=== PATIENT | female | born 1945 | race Caucasian/White ===

== ENCOUNTER 2017-02-23 12:17 | Inpatient (IN) | payer MEDICARE, OTHER ==
[~2017-02-23] VITALS: Ht 162.6 cm; Wt 98.9 kg
[2017-02-23 12:20] VITALS: BP 134/80; PULSE 85; O2SAT 94
--- NOTE | 2017-02-23 13:11 | ED.REPORT ---
HPI-Altered Mental Status Date of Service Feb 23, 2017 ED Provider: Stephanie Franco MD 71 year old female presents to the ER due to seizures and confusion. She was seen four days ago at [facility] and diagnosed wtih UTI. Nurse at the patient's assisted living facility reports back to back absence seizures, and increased confusion. Patient has been unable to feed and dress herself, and has an unsteady gait. She has a neurology appointment scheduled for tomorrow. Nursing Notes Stated Complaint: SEIZURES/CONFUSION Chief Complaint: Seizure Nursing Notes Reviewed: Yes Allergies: Coded Allergies: acetaminophen (Verified Allergy, Unknown, 02/23/17) codeine (Verified Allergy, Unknown, 02/23/17) oxycodone (Verified Allergy, Unknown, 02/23/17) General Time Seen by MD: 13:03 Chief Complaint Confused, Seizure activity Arrived By: Walk-in Sudden in Onset?: No Past Medical History Past Medical History Seizures Cardiomyopathy Reports: Diabetes mellitus Reports: Urinary tract infection Past Surgical History Defibrillator placement Smoking History Unknown if Ever Smoker Review of Systems Review of Systems Note: +Unsteady gait Neurologic: Reports: Seizure Psychiatric: Reports: Confusion Complete sys rev & neg: except as marked. Physical Exam Initial Vital Signs Vital Signs (First) Date Time Temp Pulse Resp B/P Pulse Ox O2 Delivery O2 Flow Rate FiO2 02/23/17 12:20 36.8 85 134/80 94 Interpretation & Diagnostics Lab Results Interpretation Result Diagram: 02/23/17 1335 02/23/17 1335 Test 02/23/17 12:30 02/23/17 13:35 Urine Color Straw (YELLOW) Urine Appearance Hazy (CLEAR,HAZY) Urine pH 7.0 (5.0-8.0) Urine Specific [place] 1.010 (1.003-1.035) Urine Protein Negativemg/dL (NEG,TRACE) Urine Glucose (UA) Negativemg/dL (NEGATIVE) Urine Ketones Negativemg/dL (NEGATIVE) Urine Occult Blood Negative (NEGATIVE) Urine Nitrite Negative (NEGATIVE) Urine Bilirubin Negative (NEGATIVE) Urine Urobilinogen Normalmg/dL (NORMAL) Urine Leukocyte Esterase Trace (NEGATIVE) Urine RBC 0-2/hpf (0-2) Urine WBC 0-5/hpf (0-5) Urine Epithelial Cells Occasional/hpf (NONE-MOD) Urine Crystals None seen (NONE SEEN) Urine Bacteria Moderate/hpf (NONE-FEW) Urine Hyaline Casts None/lpf (NONE) Urine Granular Casts None seen (NONE SEEN) Urine Waxy Casts None seen (NONE SEEN) Urine Red Blood Cell Casts None seen (NONE SEEN) Urine White Blood Cell Casts None seen (NONE SEEN) Urine Mucus None seen (None Seen) Urine Trichomonas None seen (NONE SEEN) Urine Yeast None (NONE SEEN) Urinalysis Comment None Urine Culture Reflexed Indicated White Blood Count 8.3th/mm3 (3.8-10.1) Red Blood Count 4.77mil/mm3 (3.90-5.20) Hemoglobin 13.3g/dL (12.0-15.6) Hematocrit 40.3% (35.0-46.0) Mean Corpuscular Volume 84.5fL (81-100) Mean Corpuscular Hemoglobin 27.9pg (27.0-35.0) Mean Corpuscular Hemoglobin Concent 33.0% (32.0-37.0) Red Cell Distribution Width 14.3% (12.3-15.4) Platelet Count vaughn/L (150-400) Neutrophils (%) (Auto) 38.7% (40-74) Lymphocytes (%) (Auto) 46.9% (14-46) Monocytes (%) (Auto) 11.6% (4-12) Eosinophils (%) (Auto) 2.0% (0-5) Basophils (%) (Auto) 0.4% (0-3) Prothrombin Time 10.4sec (8.1-12.5) Prothromb Time International Ratio 0.97ratio Activated Partial Thromboplast Time 33.0sec (22.8-33.0) Sodium Level 136mEq/L (134-144) Potassium Level 4.4mEq/L (3.5-5.2) Chloride Level 95mEq/L (97-108) Carbon Dioxide Level 24mmol/L (18-29) Blood Urea Nitrogen 6mg/dL (8-27) Creatinine 0.55mg/dL (0.57-1.00) Estimat Glomerular Filtration Rate 157mL/min (>59) Glucose Level 121mg/dL (60-99) Lactic Acid Level 1.9mmol/L (0.4-2.0) Calcium Level 9.9mg/dL (8.5-10.1) Total Bilirubin 0.5mg/dL (0.0-1.2) Aspartate Amino Transf (AST/SGOT) 20U/L (0-50) Alanine Aminotransferase (ALT/SGPT) 16U/L (0-32) Alkaline Phosphatase 45U/L (25-165) Troponin T < 0.010ug/L (0.0-0.011) Total Protein 7.6g/dL (6.4-8.4) Albumin 4.4g/dL (3.4-5.0) Procalcitonin 0.04ng/mL (0.00-0.08) ECG Interpretation ECG Interpretation: Sinus rhythm, rate 82 LBBB No acute changes Time: 13:28 Interpreted by: ED physician CT Head Interpretation IMPRESSION: 1. No acute intracranial hemorrhage. 2. Probable chronic small vessel ischemic changes with parenchymal volume loss. The need for better evaluation utilizing MRI may be determined clinically. Dictated by: Derik Menezes M.D. on 02/23/2017 at 12:54 Approved by: Derik Menezes M.D. on 02/23/2017 at 12:57 Study: Head CT no contrast Interpretation / Wet Read by: Interpret - Radiologist Patient Discharge & Departure Referrals: NOPCP (PCP) Stephanie Franco MD Feb 23, 2017 13:11 SIMON KENT Feb 23, 2017 13:16
[2017-02-23 13:29] LABS: APPEARANCE,URINE HAZY (CLEAR,HAZY); COLOR,URINE STRAW (YELLOW); OCCULT BLOOD,URINE NEGATIVE (NEGATIVE); UROBILINOGEN,URINE NORMAL (NORMAL)
[2017-02-23 13:56] LABS: BASOPHILS % (AUTO) 0.4 % (0-3); MONOCYTES % (AUTO) 11.6 % (4-12); Mean Corpuscular Hemoglobin 27.9 pg (27.0-35.0); Mean Corpuscular Volume 84.5 fL (81-100); NEUTROPHILS % (AUTO) 38.7 % (40-74)
--- NOTE | 2017-02-23 13:58 | DRSVH ---
PROCEDURE: CT BRAIN WITHOUT CONTRAST ([id number]) INDICATIONS: Stroke TECHNIQUE: Noncontrast 4.5 mm thick angled axial sections acquired from the foramen magnum to the vertex, with c oronal reformats. COMPARISON: Outside Film, CT, CT BRAIN WO CON, 02/20/2017, 12:41. FINDINGS: Image quality: Diagnostic. Brain: There is no acute intra-axial or extra-axial hemorrhage. No extra-axial fluid collection is i dentified. There is no midline shift or mass effect. The orbits are grossly unremarkable. No large areas of diffusely decreased attenuation are evident within the brain to suggest diffuse cer ebral edema. Areas of periventricular low attenuation are noted. The ventricles and cortical sulci are moderately prominent Bones: Calvarium and visualized facial bones are grossly intact. The imaged paranasal sinuses and m astoid air cells are clear. IMPRESSION: 1. No acute intracranial hemorrhage. 2. Probable chronic small vessel ischemic changes with parenchymal volume loss. The need for better evaluation utilizing MRI may be determined clinically. Dictated by: Derik Menezes M.D. on 02/23/2017 at 12:54 Approved by: Derik Menezes M.D. on 02/23/2017 at 12:57
[2017-02-23 14:04] LABS: INR 0.97 ratio
[2017-02-23 14:34] LABS: TROPONIN T < 0.010 ug/L (0.0-0.011)
[2017-02-23] MEDS ORDERED: Ondansetron 2 mg/mL 2 mL Inj IVPUSH PRN (16:05)
[2017-02-23] MEDS ORDERED: Alum-Mag Hydrox-Simeth 30 mL Suspension PO PRN (16:05)
--- NOTE | 2017-02-23 16:05 | ED.REPORT ---
HPI-General Illness Date of Service Feb 23, 2017 ED Provider: Samuel Nieto MD The patient is a 71 year old female with history of seizure disorder (started in 2014, on Keppra and valproic acid), cardiomyopathy, diabetes mellitus on Metformin (recently started), who presents to the emergency department with family. The patient lives in assisted living. Typically she is alert and oriented, able to dress herself, walk, feed herself, and complete basic daily activities. Over the last week she has shown increased confusion, increased seizure activity, and unsteady gait. The nurse at the assisted living facility reported that the patient has been having back to back absence seizures. Her daughter feels that the frequency of seizures are higher compared to previous seizure episodes. She is now unable to dress or feed herself. Her daughter states she is also having a hard time articulating and is unable to answer questions or follow directions. Her daughter feels that the patient has episodes of confusion and then will return to baseline, then have another episode of confusion. She was seen on Thursday and Thursday at [facility]. On Thursday she was diagnosed with a UTI and started on Keflex. Her daughter does not believe she has missed any of her seizure medication doses. There has been no recent changes to her medications. Today when they got her from home she seemed more shaky and weak compared to normal. She has not fallen or hit her head recently. She has not had a fever, cough or vomiting. Neurologist: Dr. Alejandro Nursing Notes Stated Complaint: SEIZURES/CONFUSION Chief Complaint: Seizure Nursing Notes Reviewed: Yes Allergies: Coded Allergies: acetaminophen (Verified Allergy, Unknown, 02/23/17) codeine (Verified Allergy, Unknown, 02/23/17) oxycodone (Verified Allergy, Unknown, 02/23/17) Scheduled Carvedilol (Carvedilol) 25 Mg Tablet 25 MG PO BID Cephalexin (Cephalexin) 500 Mg Capsule 500 MG PO TID Digoxin (Digoxin) 125 Mcg Tablet 125 MCG PO DAILY Eplerenone (Eplerenone) 25 Mg Tablet 25 MG PO QAM Fenofibrate (Lofibra) 54 Mg Tablet 54 MG PO DAILY Furosemide (Furosemide) 20 Mg Tab 20 MG PO BIDWM Levetiracetam (Levetiracetam) 500 Mg Tablet 500 MG PO QAM Levetiracetam (Levetiracetam) 500 Mg Tablet 1,000 MG PO HS Losartan Potassium (Losartan Potassium) 50 Mg Tablet 50 MG PO BID Metformin (Metformin) 500 Mg Tablet 500 MG PO BIDWM Olanzapine (Olanzapine) 2.5 Mg Tablet 2.5 MG PO HS Omeprazole (Omeprazole) 20 Mg Capsule.dr 20 MG PO BIDAC Valproic Acid (Valproic Acid) 250 Mg Capsule 500 MG PO BID Swallowed whole without chewing to avoid local irritation of the mouth and throat. General Time Seen by MD: 15:16 Chief Complaint Altered mental status Hx Obtained From: Patient, Daughter Arrived By: Wheelchair Sudden in Onset?: Yes Onset Occurred: 1 week ago Symptom Duration: Since onset Severity: Current: No pain currently Severity: Maximum: No pain Recent Healthcare: No recent hospitalization, Recent doctor visit Similar Sx Previous: No Past Medical History Past Medical History Seizures Cardiomyopathy Reports: Diabetes mellitus Reports: Urinary tract infection Past Surgical History Defibrillator placement Family History Noncontributory Smoking History Unknown if Ever Smoker Social History Other Social History: Good social support, Lives in [facility] Ambulatory Status Independent Review of Systems Full Review of Systems Constitutional: Reports: Weakness - generalized, Denies: Fever Respiratory: Denies: Non-productive cough GI: Denies: Vomiting Neurologic: Reports: Confusion, Problem walking, Seizure, Shaking Psychiatric: Reports: Change mental status Complete sys rev & neg: except as marked. Physical Exam Vital Signs Vital Signs Date Time Temp Pulse Resp B/P Pulse Ox O2 Delivery O2 Flow Rate FiO2 02/23/17 12:20 36.8 85 134/80 94 Initial VS: Reviewed Neck: Supple, Non-tender, Full range of motion Respiratory: Breath sounds normal, Clear to auscultation, No respiratory distress Cardiovascular: Regular rate & rhythm, Heart sounds normal, Intact distal pulses Abdomen / GI: Soft, Non-tender, No guarding, No rebound, No distention Extremities: No tenderness Skin: Warm, Dry, No cyanosis General/Constitutional: Awake, Alert, Cooperative Head / Eyes: Atraumatic, Normocephalic, PERRL, EOMI No signs of trauma ENT: Atraumatic, Airway patent No signs of trauma Lower Extremity / Pelvis / MS: No deformity Bilateral non-pitting edema bilaterally that extends up to the knees. There is a bandage to the left lateral lower extremity without redness, erythema or warmth. Neurologic: Speech NL She is not oriented to place or time but she is able to speak fluently without slurred speech. No facial droop. Strength is 5/5 to upper and lower extremities. She has a little difficulty following directions on the neuro exam. No pronator drift. Sensation is intact. No dysmetria with finger to nose testing. Interpretation & Diagnostics Lab Results Interpretation Result Diagram: 02/23/17 1335 02/23/17 1335 Test 02/23/17 12:30 02/23/17 13:35 02/23/17 16:17 Urine Color Straw (YELLOW) Urine Appearance Hazy (CLEAR,HAZY) Urine pH 7.0 (5.0-8.0) Urine Specific [place] 1.010 (1.003-1.035) Urine Protein Negativemg/dL (NEG,TRACE) Urine Glucose (UA) Negativemg/dL (NEGATIVE) Urine Ketones Negativemg/dL (NEGATIVE) Urine Occult Blood Negative (NEGATIVE) Urine Nitrite Negative (NEGATIVE) Urine Bilirubin Negative (NEGATIVE) Urine Urobilinogen Normalmg/dL (NORMAL) Urine Leukocyte Esterase Trace (NEGATIVE) Urine RBC 0-2/hpf (0-2) Urine WBC 0-5/hpf (0-5) Urine Epithelial Cells Occasional/hpf (NONE-MOD) Urine Crystals None seen (NONE SEEN) Urine Bacteria Moderate/hpf (NONE-FEW) Urine Hyaline Casts None/lpf (NONE) Urine Granular Casts None seen (NONE SEEN) Urine Waxy Casts None seen (NONE SEEN) Urine Red Blood Cell Casts None seen (NONE SEEN) Urine White Blood Cell Casts None seen (NONE SEEN) Urine Mucus None seen (None Seen) Urine Trichomonas None seen (NONE SEEN) Urine Yeast None (NONE SEEN) Urinalysis Comment None Urine Culture Reflexed Indicated White Blood Count 8.3th/mm3 (3.8-10.1) Red Blood Count 4.77mil/mm3 (3.90-5.20) Hemoglobin 13.3g/dL (12.0-15.6) Hematocrit 40.3% (35.0-46.0) Mean Corpuscular Volume 84.5fL (81-100) Mean Corpuscular Hemoglobin 27.9pg (27.0-35.0) Mean Corpuscular Hemoglobin Concent 33.0% (32.0-37.0) Red Cell Distribution Width 14.3% (12.3-15.4) Platelet Count vaughn/L (150-400) Neutrophils (%) (Auto) 38.7% (40-74) Lymphocytes (%) (Auto) 46.9% (14-46) Monocytes (%) (Auto) 11.6% (4-12) Eosinophils (%) (Auto) 2.0% (0-5) Basophils (%) (Auto) 0.4% (0-3) Prothrombin Time 10.4sec (8.1-12.5) Prothromb Time International Ratio 0.97ratio Activated Partial Thromboplast Time 33.0sec (22.8-33.0) Sodium Level 136mEq/L (134-144) Potassium Level 4.4mEq/L (3.5-5.2) Chloride Level 95mEq/L (97-108) Carbon Dioxide Level 24mmol/L (18-29) Blood Urea Nitrogen 6mg/dL (8-27) Creatinine 0.55mg/dL (0.57-1.00) Estimat Glomerular Filtration Rate 157mL/min (>59) Glucose Level 121mg/dL (60-99) Calcium Level 9.9mg/dL (8.5-10.1) Total Bilirubin 0.5mg/dL (0.0-1.2) Aspartate Amino Transf (AST/SGOT) 20U/L (0-50) Alanine Aminotransferase (ALT/SGPT) 16U/L (0-32) Alkaline Phosphatase 45U/L (25-165) Troponin T < 0.010ug/L (0.0-0.011) Total Protein 7.6g/dL (6.4-8.4) Albumin 4.4g/dL (3.4-5.0) Procalcitonin 0.04ng/mL (0.00-0.08) Lactic Acid Level 1.7mmol/L (0.4-2.0) Valproic Acid (Depakene) Level 53ug/mL (50-125) ECG Interpretation ECG Interpretation: Sinus rhythm, rate 82 LBBB No acute changes Time: 13:28 Interpreted by: ED physician CT Head Interpretation IMPRESSION: 1. No acute intracranial hemorrhage. 2. Probable chronic small vessel ischemic changes with parenchymal volume loss. The need for better evaluation utilizing MRI may be determined clinically. Dictated by: Derik Menezes M.D. on 02/23/2017 at 12:54 Study: Head CT no contrast Interpretation / Wet Read by: Interpret - Radiologist Re-Eval/Medical Decision Med Decision/Clinical Course The patient is a 71 year old female with history of seizure disorder (started in 2014, on Keppra and valproic acid), cardiomyopathy, diabetes mellitus on Metformin (recently started), who presents to the emergency department with family. The patient lives in assisted living. Typically she is alert and oriented, able to dress herself, walk, feed herself, and complete basic daily activities. Over the last week she has shown increased confusion, increased seizure activity, and unsteady gait. The nurse at the assisted living facility reported that the patient has been having "back to back absence seizures". Her daughter feels that the frequency of seizures are higher compared to previous seizure episodes. She is now unable to dress or feed herself. Her daughter states she is also having a hard time articulating and is unable to answer questions or follow directions. Her daughter feels that the patient has episodes of confusion and then will return to baseline, then have another episode of confusion. She was seen on Thursday and Thursday at [facility]. On Thursday she was diagnosed with a UTI and started on Keflex. Her daughter does not believe she has missed any of her seizure medication doses. There has been no recent changes to her medications. Today when they got her from home she seemed more shaky and weak compared to normal. She has not fallen or hit her head recently. She has not had a fever, cough or vomiting. Here in the emergency department the patient has a very bizarre affect and is not oriented to place or time. She demonstrates no tonic/clonic seizure activity or absence type seizure activity for that matter. Neurologic examination reveals no lateralizing deficits and the overall presentation is not suggestive of an acute ischemic stroke. Here in the ER pt is afebrile, hemodynamically stable without any meningismus. Mentation not suggestive of meningitis or encephalitis. Head CT: no acute hemorrhage or mass lesion. LABS: CBC unremarkable, CMP is unremarkable, lactic acid 1.9, troponin negative , coag studies are normal, UA shows trace leukesterase, moderate bacteria - however she is already being treated with antibiotics Treated with 1 g Ceftriaxone in the emergency department. Patient was discussed with her neurologist Dr. Godwin. There are discussion it is unclear whether this patient is genuinely having seizures or whether this is reflective of overlying dementia/psychiatric illness. There are discussion the patient has had a previous extensive workup at [facility] with an EEG that. Demonstrate a focus of seizure activity however subsequent workups including video EEG monitoring have been unrevealing. Dr. Godwin would like the patient admitted to the hospital with plan for EEG. Here in the emergency room I witnessed no evidence of seizure activity. No evidence of acute infectious process or significant electrolyte abnormality. I have given her antibiotics for her urinary tract infection. Discussed with admitting hospitalist and transferred in stable condition. Valproic acid and Keppra levels are pending. Source of Hx: Old records, Family Time of Eval: 17:00 Re-Evaluation/Progress Note: Discussed plan for admission with the patient and family. All questions were addressed. Consultation #1: Referral / Consult Name: Yamilka Alejandro MD Consulted With: Neurology Call Returned at: 16:51 Partnership Manager: Agrees with eval, Agrees with plan Note: Admit for EEG Consultation #2: Referral / Consult Name: Willem Robles Consulted With: Hospitalist Requested Call at: 16:51 Call Returned at: 17:58 Partnership Manager: Will see patient, Agrees with eval, Agrees with plan, Accepts admit Counseled Regarding: Diagnosis, Lab results, Need for admission Discharge & Departure Primary Impression: Altered mental status Altered mental status type: unspecified Qualified Code: R41.82 - Altered mental status, unspecified Additional Impressions: Seizure disorder Confusion after a seizure Disposition: ADMITTED TO HOSPITAL Discharge Condition All VS Reviewed: Yes Condition: Stable Referrals: Ila Aly PA-C (PCP) Yamilka Alejandro MD Attestation Portions of this note were transcribed by Melita Garcia. I, Dr. Nieto personally performed the history, physical exam and medical decision-making; I reviewed and confirmed the accuracy of the information in the transcribed note. Signed by: Anupam Suh, 02/23/2017 at 1833. copies to: Yamilka Alejandro MD; Ila Aly PA-C, Beck O MD Feb 23, 2017 16:05 Melita Garcia Feb 23, 2017 16:09
[2017-02-23] MEDS ORDERED: cefTRIAXone Inj 1,000 MG in Dextrose 5% Minibag Plus 50 ML IV ONE (16:25)
[2017-02-23] MEDS ORDERED: OMEP20CA11 PO (16:29)
[2017-02-23] MEDS ORDERED: CEPH500C PO (16:29)
[2017-02-23] MEDS ORDERED: LEVE500T3 PO ×2 (16:29)
[2017-02-23] MEDS ORDERED: OLAN2.5T20 PO (16:33)
[2017-02-23] MEDS ORDERED: CARV25TA2 PO (16:33)
[2017-02-23] MEDS ORDERED: FENO54TA4 PO (16:33)
[2017-02-23] MEDS ORDERED: DIGO125T73 PO (16:33)
[2017-02-23] MEDS ORDERED: METF500T4 PO (16:33)
[2017-02-23] MEDS ORDERED: EPLE25TA3 PO (16:33)
[2017-02-23] MEDS ORDERED: FUR20 PO (16:33)
[2017-02-23] MEDS ORDERED: VALP250C2 PO (16:33)
[2017-02-23] MEDS ORDERED: LOSA50TA37 PO (16:33)
--- NOTE | 2017-02-23 17:29 | NUR ---
Evaluation completed. Please go to "Notes" then click on "Assessments and Notes" (bottom left corner of screen). Then select appropriate discipline tab on top of screen.
[2017-02-23 19:24] VITALS: BP 121/71; PULSE 77; RESP 16; O2SAT 97
--- NOTE | 2017-02-23 19:29 | NUR ---
Admission Patient admitted to the floor from ED at 1830. Admission questions done by primary nurse and med list done by admit nurse. Patient report of no pain. Patient is on CPA for TONY - family will bring CPAP from home tomorrow. Also family will bring patient's [employer] from home tomorrow. Patient require host assist for meals, set up required and food cut up into small pieces. Oriented patient to the room, place bed in lowest position and call light within reach.
[2017-02-23] MEDS ORDERED: ASPI325T32 PO (19:47)
[2017-02-23] MEDS ORDERED: ESTR42.52 VG (19:48)
[2017-02-23] MEDS ORDERED: OMEG-38 PO (19:50)
[2017-02-23] MEDS ORDERED: MULT-1018 PO (19:52)
[2017-02-23] MEDS ORDERED: VITA-242 PO (19:55)
[2017-02-23] MEDS ORDERED: CHOL10008 PO (19:55)
[2017-02-23] MEDS ORDERED: MAGN400O4 PO (19:57)
[2017-02-23] MEDS ORDERED: BISA10SU61 RC (19:57)
[2017-02-23] MEDS ORDERED: LOPE2TAB32 PO (19:57)
[2017-02-23] MEDS ORDERED: ACET325T51 PO (19:57)
[2017-02-23] MEDS ORDERED: BISM-95 PO (19:58)
--- NOTE | 2017-02-23 20:29 | PCM.HPMED ---
Subjective Date of Service Feb 23, 2017 Primary Provider: Admitting Physician: Willem Robles Primary Care Physician: Ila Aly PA-C Attending Physician: Willem Robles Admit Status: From the Emergency Department Chief Complaint: Altered Mental Status History of Present Illness: Patient unable to provide reliable history. From the ER documentation earlier today with the patient's daughter present: "The patient is a 71 year old female with history of seizure disorder (started in 2014, on Keppra and valproic acid), cardiomyopathy, diabetes mellitus on Metformin (recently started), who presents to the emergency department with family. The patient lives in assisted living. Typically she is alert and oriented, able to dress herself, walk, feed herself, and complete basic daily activities. Over the last week she has shown increased confusion, increased seizure activity, and unsteady gait. The nurse at the assisted living facility reported that the patient has been having back to back absence seizures. Her daughter feels that the frequency of seizures are higher compared to previous seizure episodes. She is now unable to dress or feed herself. Her daughter states she is also having a hard time articulating and is unable to answer questions or follow directions. Her daughter feels that the patient has episodes of confusion and then will return to baseline, then have another episode of confusion. She was seen on Thursday and Thursday at [facility]. On Thursday she was diagnosed with a UTI and started on Keflex. Her daughter does not believe she has missed any of her seizure medication doses. There has been no recent changes to her medications. Today when they got her from home she seemed more shaky and weak compared to normal. She has not fallen or hit her head recently. She has not had a fever, cough or vomiting." Review of Systems: Patient this evening reports a terrible headache but otherwise her 14 point ROS is negative except as above in the ER notes. Allergies Coded Allergies: acetaminophen (Verified Allergy, Unknown, 02/23/17) codeine (Verified Allergy, Unknown, 02/23/17) oxycodone (Verified Allergy, Unknown, 02/23/17) Home Medications Carvedilol (Carvedilol) 25 Mg Tablet 25 MG PO BID Cephalexin (Cephalexin) 500 Mg Capsule 500 MG PO TID Digoxin (Digoxin) 125 Mcg Tablet 125 MCG PO DAILY Eplerenone (Eplerenone) 25 Mg Tablet 25 MG PO QAM Fenofibrate (Lofibra) 54 Mg Tablet 54 MG PO DAILY Furosemide (Furosemide) 20 Mg Tab 20 MG PO BIDWM Levetiracetam (Levetiracetam) 500 Mg Tablet 500 MG PO QAM Levetiracetam (Levetiracetam) 500 Mg Tablet 1,000 MG PO HS Losartan Potassium (Losartan Potassium) 50 Mg Tablet 50 MG PO BID Metformin (Metformin) 500 Mg Tablet 500 MG PO BIDWM Olanzapine (Olanzapine) 2.5 Mg Tablet 2.5 MG PO HS Omeprazole (Omeprazole) 20 Mg Capsule.dr 20 MG PO BIDAC Valproic Acid (Valproic Acid) 250 Mg Capsule 500 MG PO BID PMH Seizures 2015 onset Cardiomyopathy Psychosis 2016 Reports: Diabetes mellitus Reports: Urinary tract infection Surgical History Defibrillator placement Right knee replacement Family History Mother is , had diabetes Father still living, patient unaware of his health issues Social History Hx Alcohol Use: No Hx Substance Use: No Hx Tobacco Use: No Smoking Status: Never Smoker Living Arrangement: Assisted Living Exam Vital Signs Vital Sign - Last Date Time Temp Pulse Resp B/P Pulse Ox O2 Delivery O2 Flow Rate FiO2 02/23/17 19:24 36.6 77 16 121/71 97 Nasal Cannula 1.50 Exam General: Alert, Oriented to self only, Cooperative, No Acute Distress Head: Normocephalic, atraumatic. External ears normal. Eyes: PERRLA, EOMI. Anicteric sclerae. Mouth: Mouth Normal, Mucous Membranes Moist/[place] Neck: Neck supple with full range of motion. Chest & Lungs: Clear to auscultation bilaterally with no crackles, wheezes, or rhonchi. Cardiovascular: Regular Rate/Rhythm, Normal S1, Normal S2, No Murmurs/Rubs/ Gallops Abdomen: Non-tender, Non-distended, No masses, Normoactive bowel tones, Soft Musculoskeletal: Normal Range of Motion Extremities: 1+ bilateral non-pitting edema Neurological: Patient knows her name only, echoes last word in every question, able to imitate testing of cranial nerves so Cranial Nerves 2-12 are intact, Strength Normal 4/4 ext, Sensation Intact, Cerebellar Function limited by cognitive deficit, ie unable to perform heel to qureshi even as imitation, finger to nose test was very confused but coordination appears intact, Reflexes Normal Lab and Diagnostics Labs Laboratory Tests Test 02/23/17 12:30 02/23/17 13:35 02/23/17 16:17 Urine Color Straw (YELLOW) Urine Appearance Hazy (CLEAR,HAZY) Urine pH 7.0 (5.0-8.0) Urine Specific [place] 1.010 (1.003-1.035) Urine Protein Negativemg/dL (NEG,TRACE) Urine Glucose (UA) Negativemg/dL (NEGATIVE) Urine Ketones Negativemg/dL (NEGATIVE) Urine Occult Blood Negative (NEGATIVE) Urine Nitrite Negative (NEGATIVE) Urine Bilirubin Negative (NEGATIVE) Urine Urobilinogen Normalmg/dL (NORMAL) Urine Leukocyte Esterase Trace (NEGATIVE) Urine RBC 0-2/hpf (0-2) Urine WBC 0-5/hpf (0-5) Urine Epithelial Cells Occasional/hpf (NONE-MOD) Urine Crystals None seen (NONE SEEN) Urine Bacteria Moderate/hpf (NONE-FEW) Urine Hyaline Casts None/lpf (NONE) Urine Granular Casts None seen (NONE SEEN) Urine Waxy Casts None seen (NONE SEEN) Urine Red Blood Cell Casts None seen (NONE SEEN) Urine White Blood Cell Casts None seen (NONE SEEN) Urine Mucus None seen (None Seen) Urine Trichomonas None seen (NONE SEEN) Urine Yeast None (NONE SEEN) Urinalysis Comment None Urine Culture Reflexed Indicated White Blood Count 8.3th/mm3 (3.8-10.1) Red Blood Count 4.77mil/mm3 (3.90-5.20) Hemoglobin 13.3g/dL (12.0-15.6) Hematocrit 40.3% (35.0-46.0) Mean Corpuscular Volume 84.5fL (81-100) Mean Corpuscular Hemoglobin 27.9pg (27.0-35.0) Mean Corpuscular Hemoglobin Concent 33.0% (32.0-37.0) Red Cell Distribution Width 14.3% (12.3-15.4) Platelet Count vaughn/L (150-400) Neutrophils (%) (Auto) 38.7% (40-74) Lymphocytes (%) (Auto) 46.9% (14-46) Monocytes (%) (Auto) 11.6% (4-12) Eosinophils (%) (Auto) 2.0% (0-5) Basophils (%) (Auto) 0.4% (0-3) Prothrombin Time 10.4sec (8.1-12.5) Prothromb Time International Ratio 0.97ratio Activated Partial Thromboplast Time 33.0sec (22.8-33.0) Sodium Level 136mEq/L (134-144) Potassium Level 4.4mEq/L (3.5-5.2) Chloride Level 95mEq/L (97-108) Carbon Dioxide Level 24mmol/L (18-29) Blood Urea Nitrogen 6mg/dL (8-27) Creatinine 0.55mg/dL (0.57-1.00) Estimat Glomerular Filtration Rate 157mL/min (>59) Glucose Level 121mg/dL (60-99) Lactic Acid Level 1.9mmol/L (0.4-2.0) 1.7mmol/L (0.4-2.0) Calcium Level 9.9mg/dL (8.5-10.1) Total Bilirubin 0.5mg/dL (0.0-1.2) Aspartate Amino Transf (AST/SGOT) 20U/L (0-50) Alanine Aminotransferase (ALT/SGPT) 16U/L (0-32) Alkaline Phosphatase 45U/L (25-165) Troponin T < 0.010ug/L (0.0-0.011) Total Protein 7.6g/dL (6.4-8.4) Albumin 4.4g/dL (3.4-5.0) Procalcitonin 0.04ng/mL (0.00-0.08) Valproic Acid (Depakene) Level 53ug/mL (50-125) Microbiology 02/23/17 Blood Culture, Received Pending 02/23/17 Urine Culture, Received Pending Result Diagram: 02/23/17 1335 02/23/17 1335 Microbiology Blood and urine cultures pending X-Rays, CTs and MRIs CT Head Interpretation IMPRESSION: 1. No acute intracranial hemorrhage. 2. Probable chronic small vessel ischemic changes with parenchymal volume loss. The need for better evaluation utilizing MRI may be determined clinically. Dictated by: Derik Menezes M.D. on 02/23/2017 at 12:54 12-lead ECG Sinus rhythm, rate 82 LBBB No acute changes Assessment & Plan Very pleasant 71yo woman with seizure history since 2014, recent DM2, cardiomyopathy s/p defibrillator placement presents with altered mental status and reported increased incidents of absence seizures and confusion. At baseline her daughter reported to the ED that she is alert and oreinted and carries out all basic ADLs independently. She was diagnosed with a UTI on and is completing a course of Cephalexin. She sees Dr Walton and her case was discussed by Dr Walton and Dr Nieto our ER doctor. Dr Walton requested the patient be admitted and that an EEG be ordered. The daughter believes the patient did take her medicines on schedule. 1. Altered Mental Status, POA, secondary to increased seizure activity vs increasing dementia or psychiatric illness -Valproic Acid and Keppra levels pending. -EEG ordered. -Continue home dosing of seizure medications: Levetiracetam 1500mg PO qhs, Valproic Acid 500mg BID -Dr Walton following 2. Psychosis, POA, documented in Dr Walton's notes in 2015 and treated with Olanzapine since then -Continue Olanzapine 2.5mg daily 3. Diabetes Mellitus type 2, controlled with oral medications -Continue Metformin 500mg PO BID 4. Cardiomyopathy -Continue home medications: Carvedilol 25mg PO BID, Digoxin 0.125mg daily, Losartan 50mg PO BID, Furosemide 20mg PO BID, Eplerenone 25mg qam, Aspirin 325mg daily 5. UTI treatment with Cephalexin 500mg PO TID started on 02/20/17 -Continue antibiotic for 3 more days for last day on 02/26/17 Dave Kenny DO Feb 23, 2017 20:29
[2017-02-23] MEDS ORDERED: Polyethylene Glycol (PEG) 17 Gm Powder PO PRN (21:25)
--- NOTE | 2017-02-23 21:33 | NUR ---
2000: touched base w/ family prior to their leaving for the night; state they will bring cpap tomorrow. phone numbers available on white board. seizure precautions in place, instructed supervisor fabrication department light use, but unable to follow commands. several attempts to self-transfer, toileted x 3 w/ no void. call to Dr. Kenny. order received to place rodas. patient voided 375cc few min after order was received. Addendum: 02/24/17 at 0135 by KHARI FUNEZ RN 0130: cont to void w/o problems, no need for rodas. info page sent to . mentation and recall ability improved. resting comfortably. amador bed alarm in place.
--- NOTE | 2017-02-23 22:02 | PCM.HPMED ---
Subjective Date of Service Feb 23, 2017 Primary Provider: Admitting Physician: Willem Robles Primary Care Physician: Ila Aly PA-C Attending Physician: Willem Robles Admit Status: From the Emergency Department Chief Complaint: Altered Mental Status History of Present Illness: Patient unable to provide reliable history. From the ER documentation earlier today with the patient's daughter present: "The patient is a 71 year old female with history of seizure disorder (started in 2014, on Keppra and valproic acid), cardiomyopathy, diabetes mellitus on Metformin (recently started), who presents to the emergency department with family. The patient lives in assisted living. Typically she is alert and oriented, able to dress herself, walk, feed herself, and complete basic daily activities. Over the last week she has shown increased confusion, increased seizure activity, and unsteady gait. The nurse at the assisted living facility reported that the patient has been having back to back absence seizures. Her daughter feels that the frequency of seizures are higher compared to previous seizure episodes. She is now unable to dress or feed herself. Her daughter states she is also having a hard time articulating and is unable to answer questions or follow directions. Her daughter feels that the patient has episodes of confusion and then will return to baseline, then have another episode of confusion. She was seen on Thursday and Thursday at [facility]. On Thursday she was diagnosed with a UTI and started on Keflex. Her daughter does not believe she has missed any of her seizure medication doses. There has been no recent changes to her medications. Today when they got her from home she seemed more shaky and weak compared to normal. She has not fallen or hit her head recently. She has not had a fever, cough or vomiting." Review of Systems: Patient this evening reports a terrible headache but otherwise her 14 point ROS is negative except as above in the ER notes. She appears quite content and relaxed, no sign of pain or discomfort. Allergies Coded Allergies: acetaminophen (Verified Allergy, Unknown, 02/23/17) codeine (Verified Allergy, Unknown, 02/23/17) oxycodone (Verified Allergy, Unknown, 02/23/17) Home Medications Carvedilol (Carvedilol) 25 Mg Tablet 25 MG PO BID Cephalexin (Cephalexin) 500 Mg Capsule 500 MG PO TID Digoxin (Digoxin) 125 Mcg Tablet 125 MCG PO DAILY Eplerenone (Eplerenone) 25 Mg Tablet 25 MG PO QAM Fenofibrate (Lofibra) 54 Mg Tablet 54 MG PO DAILY Furosemide (Furosemide) 20 Mg Tab 20 MG PO BIDWM Levetiracetam (Levetiracetam) 500 Mg Tablet 500 MG PO QAM Levetiracetam (Levetiracetam) 500 Mg Tablet 1,000 MG PO HS Losartan Potassium (Losartan Potassium) 50 Mg Tablet 50 MG PO BID Metformin (Metformin) 500 Mg Tablet 500 MG PO BIDWM Olanzapine (Olanzapine) 2.5 Mg Tablet 2.5 MG PO HS Omeprazole (Omeprazole) 20 Mg Capsule.dr 20 MG PO BIDAC Valproic Acid (Valproic Acid) 250 Mg Capsule 500 MG PO BID PMH Seizures 2015 onset Cardiomyopathy Psychosis 2016 Reports: Diabetes mellitus Reports: Urinary tract infection Surgical History Defibrillator placement Right knee replacement Surgical History Right knee replacement Defibrillator placement Family History Mother is , had diabetes Father still living, patient unaware of his health issues Social History Hx Alcohol Use: No Hx Substance Use: No Smoking Status: Unknown if Ever Smoker Exam Vital Signs Vital Sign - Last Date Time Temp Pulse Resp B/P Pulse Ox O2 Delivery O2 Flow Rate FiO2 02/23/17 19:24 36.6 77 16 121/71 97 Nasal Cannula 1.50 Exam General: Alert, Oriented to self only, Cooperative, No Acute Distress Head: Normocephalic, atraumatic. External ears normal. Eyes: PERRLA, EOMI. Anicteric sclerae. Mouth: Mouth Normal, Mucous Membranes Moist/[place] Neck: Neck supple with full range of motion. Chest & Lungs: Clear to auscultation bilaterally with no crackles, wheezes, or rhonchi. Cardiovascular: Regular Rate/Rhythm, Normal S1, Normal S2, No Murmurs/Rubs/ Gallops Abdomen: Non-tender, Non-distended, No masses, Normoactive bowel tones, Soft Musculoskeletal: Normal Range of Motion Extremities: 1+ bilateral non-pitting edema Neurological: Patient knows her name only, echoes last word in every question, able to imitate testing of cranial nerves so Cranial Nerves 2-12 are intact, Strength Normal 4/4 ext, Sensation Intact, Cerebellar Function limited by cognitive deficit, ie unable to perform heel to qureshi even as imitation, finger to nose test was very confused but coordination appears intact, Reflexes Normal Lab and Diagnostics Labs Laboratory Tests Test 02/23/17 12:30 02/23/17 13:35 02/23/17 16:17 Urine Color Straw (YELLOW) Urine Appearance Hazy (CLEAR,HAZY) Urine pH 7.0 (5.0-8.0) Urine Specific [place] 1.010 (1.003-1.035) Urine Protein Negativemg/dL (NEG,TRACE) Urine Glucose (UA) Negativemg/dL (NEGATIVE) Urine Ketones Negativemg/dL (NEGATIVE) Urine Occult Blood Negative (NEGATIVE) Urine Nitrite Negative (NEGATIVE) Urine Bilirubin Negative (NEGATIVE) Urine Urobilinogen Normalmg/dL (NORMAL) Urine Leukocyte Esterase Trace (NEGATIVE) Urine RBC 0-2/hpf (0-2) Urine WBC 0-5/hpf (0-5) Urine Epithelial Cells Occasional/hpf (NONE-MOD) Urine Crystals None seen (NONE SEEN) Urine Bacteria Moderate/hpf (NONE-FEW) Urine Hyaline Casts None/lpf (NONE) Urine Granular Casts None seen (NONE SEEN) Urine Waxy Casts None seen (NONE SEEN) Urine Red Blood Cell Casts None seen (NONE SEEN) Urine White Blood Cell Casts None seen (NONE SEEN) Urine Mucus None seen (None Seen) Urine Trichomonas None seen (NONE SEEN) Urine Yeast None (NONE SEEN) Urinalysis Comment None Urine Culture Reflexed Indicated White Blood Count 8.3th/mm3 (3.8-10.1) Red Blood Count 4.77mil/mm3 (3.90-5.20) Hemoglobin 13.3g/dL (12.0-15.6) Hematocrit 40.3% (35.0-46.0) Mean Corpuscular Volume 84.5fL (81-100) Mean Corpuscular Hemoglobin 27.9pg (27.0-35.0) Mean Corpuscular Hemoglobin Concent 33.0% (32.0-37.0) Red Cell Distribution Width 14.3% (12.3-15.4) Platelet Count vaughn/L (150-400) Neutrophils (%) (Auto) 38.7% (40-74) Lymphocytes (%) (Auto) 46.9% (14-46) Monocytes (%) (Auto) 11.6% (4-12) Eosinophils (%) (Auto) 2.0% (0-5) Basophils (%) (Auto) 0.4% (0-3) Prothrombin Time 10.4sec (8.1-12.5) Prothromb Time International Ratio 0.97ratio Activated Partial Thromboplast Time 33.0sec (22.8-33.0) Sodium Level 136mEq/L (134-144) Potassium Level 4.4mEq/L (3.5-5.2) Chloride Level 95mEq/L (97-108) Carbon Dioxide Level 24mmol/L (18-29) Blood Urea Nitrogen 6mg/dL (8-27) Creatinine 0.55mg/dL (0.57-1.00) Estimat Glomerular Filtration Rate 157mL/min (>59) Glucose Level 121mg/dL (60-99) Lactic Acid Level 1.9mmol/L (0.4-2.0) 1.7mmol/L (0.4-2.0) Calcium Level 9.9mg/dL (8.5-10.1) Total Bilirubin 0.5mg/dL (0.0-1.2) Aspartate Amino Transf (AST/SGOT) 20U/L (0-50) Alanine Aminotransferase (ALT/SGPT) 16U/L (0-32) Alkaline Phosphatase 45U/L (25-165) Troponin T < 0.010ug/L (0.0-0.011) Total Protein 7.6g/dL (6.4-8.4) Albumin 4.4g/dL (3.4-5.0) Procalcitonin 0.04ng/mL (0.00-0.08) Valproic Acid (Depakene) Level 53ug/mL (50-125) Microbiology 02/23/17 Blood Culture, Received Pending 02/23/17 Urine Culture, Received Pending Result Diagram: 02/23/17 4168 02/23/17 1331 Microbiology Blood and urine cultures pending X-Rays, CTs and MRIs CT Head Interpretation IMPRESSION: 1. No acute intracranial hemorrhage. 2. Probable chronic small vessel ischemic changes with parenchymal volume loss. The need for better evaluation utilizing MRI may be determined clinically. Dictated by: Derik Menezes M.D. on 02/23/2017 at 12:54 12-lead ECG 12-lead ECG Sinus rhythm, rate 82 LBBB No acute changes Assessment & Plan Very pleasant 71yo woman with seizure history since 2014, recent DM2, cardiomyopathy s/p defibrillator placement presents with altered mental status and reported increased incidents of absence seizures and confusion. At baseline her daughter reported to the ED that she is alert and oriented and carries out all basic ADLs independently. She was diagnosed with a UTI on and is completing a course of Cephalexin. She sees Dr Walton and her case was discussed by Dr Walton and Dr Nieto our ER doctor. Dr Walton requested the patient be admitted and that an EEG be ordered. The daughter believes the patient did take her medicines on schedule. I did speak with Dr Walton after seeing the patient, her comments are below. 1. Altered Mental Status, POA, secondary to increased seizure activity vs increasing dementia or psychiatric illness. -Valproic Acid and Keppra levels pending. -EEG ordered. -Continue home dosing of seizure medications: Levetiracetam 1500mg PO qhs, Valproic Acid 500mg BID -Dr Walton following will see patient after her clinic tomorrow. Request from family to transfer to [facility] if organic etiology not found. -Psychiatric consult ordered. AM team to follow up with consult. 2. Psychosis, POA, documented in Dr Walton's notes in 2015 and treated with Olanzapine since then. Patient exhibits echolalia repeating the last word or two of every sentence I speak. Dr Walton has observed this behavior in the past. -Continue Olanzapine 2.5mg daily 3. Diabetes Mellitus type 2, controlled with oral medications -Continue Metformin 500mg PO BID -Diabetic diet 4. Cardiomyopathy -Continue home medications: Carvedilol 25mg PO BID, Digoxin 0.125mg daily, Losartan 50mg PO BID, Furosemide 20mg PO BID, Eplerenone 25mg qam, Aspirin 325mg daily 5. UTI treatment with Cephalexin 500mg PO TID started on 02/20/17 -Continue antibiotic for 3 more days for last day on 02/26/17 6. Headache, POA, reported, but not confirmed by patient demeanor. Head CT without acute findings, no history of fall. Dr Wlaton suggests that in the absence of discomfort this complaint may also be psychogenic. -no treatment unless discomfort is clear or patient asks for pain relief. PRN medications for nausea, constipation, dyspepsia ordered: Ondansetron, Miralax, Senna, Pepcid. Attending Statement The patient was seen and examined together with house staff on 02/23/2017 and I have added additional information to the note above. Dave Kenny DO Feb 23, 2017 22:02 Kassidy Pinto DO Feb 24, 2017 03:19
[2017-02-23] MEDS: levETIRAcetam 500 mg Tablet PO SCH (22:05)
[2017-02-24 05:20] VITALS: BP 135/66; PULSE 74; RESP 16; O2SAT 98
[2017-02-24 08:55] VITALS: BP 122/67; PULSE 93; RESP 18; O2SAT 96
[2017-02-24] MEDS: Pantoprazole 40 mg ER24 Tablet PO SCH ×2 (09:54→17:03)
[2017-02-24] MEDS: Vitamin B Complex/Vit C Tablet PO SCH (09:56)
--- NOTE | 2017-02-24 11:00 | NUR ---
Case Management: Delivered and explained MAYITO to pt. and daughter; all questions answered. Original signed by daughter, JS and placed in chart. Copy left at bedside. Patricia Oconnell RN
--- NOTE | 2017-02-24 12:50 | PCM.PNMED ---
Subjective Date of Service Feb 24, 2017 Subjective As per daughter, patient was on continuous EEG unit 2014, didn't show any documented seizure activities This morning patient looked more confused per daughter, but wax and wane Patient was more oriented within 2hr interval since supervisor pairing and inspecting valproate level was lower normal, therefore increased able to tolerate po Exam Vital Signs Vital Sign - Last Date Time Temp Pulse Resp B/P Pulse Ox O2 Delivery O2 Flow Rate FiO2 02/24/17 08:55 Supplement Oxygen 02/24/17 08:55 36.6 93 18 122/67 96 02/24/17 05:20 1.50 Intake and Output 02/23/17 02/23/17 02/24/17 Cumulative From/Thru 14:59 22:59 06:59 02/23/17 12:20 - 02/24/17 06:29 Intake Total 100 ml 180 ml 280 ml Output Total 1375 ml 2320 ml 3695 ml Balance -1275 ml -2140 ml -3415 ml Intake Oral 100 ml 180 ml 280 ml Output Urine Total 1375 ml 2320 ml 3695 ml # Bowel Movements 1 1 Exam Does not answer questions, normal speech but incoherent, alert, disoriented motor 5/5 throughout, moving four extremities no JVD, MMM, no LAD RRR, nl s1, s2 no mrg CTAB, no w,c S,ND,NT,normoactive BS+ warm, no edema, pulses 2/2 IVs and Medications Medications Reviewed: Medications were reviewed in detail Lab and Diagnostics Result Diagram: 02/23/17 1335 02/23/17 1335 Microbiology Blood and urine cultures pending X-Rays, CTs and MRIs CT Head Interpretation IMPRESSION: 1. No acute intracranial hemorrhage. 2. Probable chronic small vessel ischemic changes with parenchymal volume loss. The need for better evaluation utilizing MRI may be determined clinically. Dictated by: Derik Menezes M.D. on 02/23/2017 at 12:54 12-lead ECG 12-lead ECG Sinus rhythm, rate 82 LBBB No acute changes Assessment & Plan Very pleasant 71yo woman with seizure history since 2014, recent DM2, cardiomyopathy s/p defibrillator placement presents with altered mental status and reported increased incidents of absence seizures and confusion. At baseline her daughter reported to the ED that she is alert and oriented and carries out all basic ADLs independently. She was diagnosed with a UTI on and is completing a course of Cephalexin. She sees Dr Walton and her case was discussed by Dr Walton and Dr Nieto our ER doctor. Dr Walton requested the patient be admitted and that an EEG be ordered. The daughter believes the patient did take her medicines on schedule. I did speak with Dr Walton after seeing the patient, her comments are below. 1. Altered Mental Status, POA, secondary to increased seizure activity vs increasing dementia or psychiatric illness. -Increased valproic acid to 750mg bid today, Keppra levels pending. continue 1.5g qhs despite concern for mood changes this morning. -EEG ordered. -awaits Dr Walton following today, -Psychiatric consult ordered. AM team to follow up with consult. 2. Psychosis, POA, documented in Dr Walton's notes in 2015 and treated with Olanzapine since then. Patient exhibits echolalia repeating the last word or two of every sentence I speak. Dr Walton has observed this behavior in the past. -Continue Olanzapine 2.5mg daily 3. Diabetes Mellitus type 2, controlled with oral medications -Continue Metformin 500mg PO BID -Diabetic diet 4. Cardiomyopathy -Continue home medications: Carvedilol 25mg PO BID, Digoxin 0.125mg daily, Losartan 50mg PO BID, Furosemide 20mg PO BID, Eplerenone 25mg qam, Aspirin 325mg daily 5. UTI treatment with Cephalexin 500mg PO TID started on 02/20/17 -would not continue given no s/s systemic infection, finished tx for cystitis for 3D 6. Headache, POA, reported, but not confirmed by patient demeanor. Head CT without acute findings, no history of fall. Dr Walton suggests that in the absence of discomfort this complaint may also be psychogenic. -no treatment unless discomfort is clear or patient asks for pain relief. dispo: likely 1-2more days, diet: consistent carb Full Code Time spent 35 minutes Junito Burt MD Feb 24, 2017 12:47
[2017-02-24 12:54] VITALS: PULSE 86
[2017-02-24 16:19] VITALS: BP 121/79; PULSE 86; RESP 18; O2SAT 94
--- NOTE | 2017-02-24 17:21 | CONS ---
[address] [address] CONSULTATION REPORT PATIENT: IRVIN ELIZALDE : 1945 MR#: [id number] ADMIT: 02/23/2017 JOB ID: [id number] DATE OF SERVICE: 02/24/2017 IDENTIFICATION OF PATIENT: The patient is a 71-year-old female who reportedly was admitted with altered mental status. The patient reportedly has a significant history of absence-type seizure activity and recently was diagnosed and treated for UTI. She reportedly met with myself and her daughter along with son-in-law throughout the course of interview. CHIEF COMPLAINT: "I have been more anxious and depressed." HISTORY OF PRESENT ILLNESS: As stated above, the patient is a 71-year-old female who met with myself along with her family members. Reportedly this last Thursday, she was informed that she has an aunt who is dying from terminal cancer. The family also indicated that she was informed that they are working with Medicaid spend down for continuation of housing. She reportedly currently lives in an assisted living program on [facility]. By history, the patient reportedly recently was seen through the emergency department at [facility] and was diagnosed with UTI on Thursday. She reportedly had significant difficulty with concentration, memory recall and significant confusing of speech. On interview, the patient had hesitancy with speech, had some stuttering and echolalic presentation. Evidently, per report, the patient has manifested with these symptoms in the past, per Dr. Alejandro's documentation. The patient reportedly has a long-term history of aphthous-type seizure activity and her current medications are being monitored by the hospitalist team as well as data migration consultant, Dr. Amador. In meeting with myself, the family did make note that the patient has been on olanzapine 2.5 mg daily in the past with noted significant improvement due to an episode of similar circumstances. She reportedly has had beneficial improvement with sleep and orientation in the past from the medication. In review of her current presentation, she identified significant treatment for anxiety and depression in the past. She reports that she saw a [employer] counselor at one time in [place]. She has a strong support network with her two daughters and their children. She was at one time for 13 years. 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 On interview, the patient did have difficulties with orientation, identifying that [facility] She had difficulties with tracking and following conversation, but was reoriented by myself and family members. She does appear to be quite anxious on exam and was able to readily identify feelings of panic and generalized anxiety features. PAST MEDICAL HISTORY: Deferred to the hospitalist team. PAST PSYCHIATRIC HISTORY: Substantial for the above information. SOCIAL HISTORY: Currently, the patient lives in an assisted living program. 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 She graduated from high school and attended [employer] and a college in the [employer]. There is known history of drug or alcohol difficulties. She was and and has two adult children. FAMILY HISTORY: Unknown. DEVELOPMENT HISTORY: As noted above. MENTAL STATUS EXAM: General appearance: Patient was cooperative, polite throughout. She was apologetic and showed significant difficulties with elevated anxiety and manifestations including restlessness, decreased concentration, inability to converse, at times with embarrassment. Her speech was latent at points, somewhat hesitant and stuttering with echolalic presentation at times. Her mood was highly anxious. Her affect was elevated. Her thought process showed evidence of loose and disorganized thinking. She had difficulties with tracking following conversations. Her thought content: There was no reference of suicidal or homicidal ideation. No evidence of hallucinations or delusions. However, she indicated that she had seen her pet cat in the hospital. She was alert. Orientation was off in all quadrants. Insight and judgment are deemed poor. Her mini mental status exam was noted at 16/30. DIAGNOSTIC IMPRESSIONS: AXIS I1. Delirium, not otherwise specified. 2. Generalized anxiety disorder, by history. 3. Panic disorder without agoraphobia, by history. 4. Depression, not otherwise specified. 5. Rule out dementia, not otherwise specified. [place] IIDeferred. [place] IIIDeferred to hospitalist team with noted long-term history of absence-type seizures. [place] IVStressors are noted for recent identification of potential loss of a relative and financial difficulties. [place] VGlobal assessment of functioning currently 40. RECOMMENDATIONS: 1. Titration of Zyprexa to 2.5 mg b.i.d. 2. We will follow the case accordingly with continuation of medical monitoring for possible underlying delirium causes. It is my understanding that the UTI is resolved at this time. 3. Consideration of neuropsychological testing post hospitalization. She will be supported with the family unit with potentials of onset of dementia and further workup noted.
--- NOTE | 2017-02-24 17:56 | CONS ---
[address] [address] CONSULTATION REPORT PATIENT: IRVIN ELIZALDE : 1945 MR#: [id number] ADMIT: 02/23/2017 JOB ID: [id number] DATE OF SERVICE: 02/24/2017 REQUESTING PHYSICIAN: Junito Burt MD. REASON FOR ADMISSION: Confusional spells. HISTORY OF PRESENT ILLNESS: The patient is a 71-year-old female whom I have seen in the neurology clinic once after a transfer of care for management of psychotic episodes. She was admitted with a recurrence of these spells after having been seen at [facility] twice. Her daughter, Dione, who is at the bedside raised concerns about missing something at [facility]. I had been called by [facility] when the patient was evaluated there initially. She was having echolalia, staring spells and odd behavior. Dione clarifies that her mother lives at [facility] in assisted living. She took her to [facility] on Thursday where she was diagnosed with a urinary tract infection and started on antibiotics. By Thursday, her symptoms had worsened and she was more confused. That was Easter Thursday, so they went to [facility] and then [facility] which was disastrous. They returned to [facility] for reevaluation when I was called. Her daughter raised concern for ongoing seizure activity. Depakote levels were found to be in the therapeutic range. Compliance is likely due to living in assisted living where her medications are managed, there were no missed doses reported. I recommended return to [facility] for re-evaluation if there was any concern regarding ongoing seizure activity. However, I also recommended evaluation by a psychiatrist for insight on the acute event. The patient was hospitalized at [facility] for three days in 2013. This was part of a hospitalization at [facility] where an abnormal EEG and bizarre activity raised concerns for frontal lobe seizures. No epileptiform abnormalities were found on 3 days of video on 01/06 video EEG monitoring. No seizure activity was found. Dione recalls that the patient was having confusional spells during the time. None of those were associated with any epileptiform abnormalities or ongoing seizure activity. The patient also had episodes were she jolted awake from sleep which were consistent with hypnic myoclonus, according to Dr. Barbara Best, the epileptologist who evaluated her at [facility]. The patient had an extensive workup which included [facility] paraneoplastic labs all of which were negative. When I saw her, I recommended that she be evaluated by a psychiatrist since some of the episodes had a psychiatric overlay with echolalia, iwlliam and nocturnal activity. Although she does nothave a psychiatric history, I recommended evaluation by a psychiatrist during at our first encounter. She was seen by Dr. Cordelia Welch on September 17, 2016. She has an appointment to see Dr. Welch again next week. Dr. Welch felt the patient's symptoms were more consistent with delirium since they had occurred only at times when the patient had other health issues such as a total knee replacement. The patient has been evaluated by a neuropsychologist without any indication of dementia. The apparently occurred at [facility]. Those reports are not available for me to review but are mentioned in Dr. Welch's note. Dr. Welch's assessment was that the patient likely had delirium not a psychiatric illness, but agreed to see her again. The patient was on olanzapine which was discontinued by Dr. Welch but restarted by the hospitalist last night after the patient developed sundowning and william. Today, she is more lucid, although she is easily confused. This morning, she was unable to feed herself, according to her daughter. EEG was completed earlier and read separately. It showed slowing, but it does not show any epileptiform abnormalities or ongoing seizure activity to suggest subclinical seizures. A psychiatry evaluation has been requested but has not yet been completed. I suggested psychiatric evaluation while the patient is actively confused to help with assessment for myself and Dr. Welch. Today, her daughter advises me that the patient's mother had Lewy body dementia. The patient is able to tell me this. Her mother had hallucinations. As far as we know, hallucinations have not occurred for this patient outside of illness. Sleep problems, other behavior and neuro problems have not been observed by staff at [facility] nor the patient's family. I recommended hospitalization to assist with sorting out the etiology of the patient's symptoms. FAMILY HISTORY: Father at 84 with heart disease. Mother at age 84 with Lewy body dementia. SOCIAL HISTORY: The patient lives at [facility]. No drugs, alcohol or tobacco. Never a cigarette smoker. She is a retired teacher. 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 DRUG ALLERGIES: 1. OXYCODONE. 2. ACETAMINOPHEN. 3. CODEINE. MEDICATIONS: As an outpatient continued as an inpatient: 1. Valproic acid 500 mg two times daily. 2. Levetiracetam extended-release 1500 mg at bedtime. 3. Carvedilol 25 mg two times daily. 4. Aspirin 325 mg daily. 5. Eplerenone 25 mg daily. 6. Estrace cream. 7. Fenofibrate. 8. Lanoxin 125 mcg daily. 9. Lasix 20 mg daily. 10. Losartan 50 mg daily. 11. Multivitamins. Inpatient medications: 1. Olanzapine 2.5 mg daily. 2. Spironolactone 25 mg daily. 3. Famotidine. 4. B and C complex. 5. Metformin. 6. Protonix. 7. Plus p.r.n.s, none currently given. REVIEW OF SYSTEMS: The patient has no complaints and is eating well, as per the history of present illness. All other systems were reviewed and reported as negative. PHYSICAL EXAMINATION: Blood pressure 122/67, pulse oximetry 96% on room air, respiratory rate 18, pulse oximetry 93, temperature is afebrile. Cardiac monitoring shows regular per EHR. rhythm. Overnight, EKG showed atrial fibrillation. Head: Normocephalic, atraumatic. No evidence of carotid bruits. Lungs: Clear to auscultation. Cardiac. Regular rate and rhythm. S1, S2 present. No lesions noted on the skin. Trace edema in the lower extremities. NEUROLOGIC EXAMINATION: The patient is alert and oriented to family and place but easily confused, initially providing a lucid history. Language and speech intact and fluent. Formal mini-mental status exam not performed. Mood is euthymic. Cranial nerves: Pupils equally reactive to light and accommodation. Extraocular movements intact. No facial asymmetry. Sensation intact on the face bilaterally. Tongue midline. Palate raises symmetrically. SCM and shoulder shrug as well as hearing appear to be intact bilaterally. Motor strength intact, upper and lower extremities, with some encouragement. Deep tendon reflexes are trace throughout. Sensation intact to touch, all four extremities. Deep tendon reflexes1+ throughout. Tone intact, upper and lower extremities. Gait deferred. No obvious dysmetria. LABORATORY STUDIES: White count 8.3, elevated lymphocytes with low neutrophils. Chloride 95, creatinine 0.55, glucose 121, valproate levels 53, levetiracetam level pending. UA shows moderate bacteria. Head CT shows no acute hemorrhage. Small vessel disease noted. ASSESSMENT AND RECOMMENDATIONS: The patient is a 71-year-old female admitted with a psychotic episode similar to those she has had previously. There are no epileptiform abnormalities seen on the EEG which is consistent with slowing and possible cognitive impairment or encephalopathy. The patient does have urinary tract infection that is being treated. Treatment of the infection led to worsening symptoms. This is consistent with her last episodes. In between these periods, she appears to be completely normal which has led her outpatient psychiatrist to believe she does not have a psychiatric disorder. Until today, I was unaware of the fact that her mother carried the diagnosis of Lewy body dementia which is associated with psychotic features as well as hallucinations. I have never asked the question of the patient as she was having hallucinations at other times. She may have mild cognitive impairment which at times of stress or illness is bringing out more psychotic features than would be normally present due to genetic predisposition for Lewy body dementia. At this time, there is no evidence to suggest that the patient has any ongoing seizures causing confusion. In fact there is no evidence to support a diagnosis of epilepsy. I will request records from [facility] to confirm this, but it is unlikely that she needs to continue antiepileptic medication let alone two of them. It is possible the valproate may have been added for mood stabilization. I recommend reducing levetiracetam to 750mg daily for two weeks then stopping. I appreciate input from psychiatry regarding this acute spell and management . I would recommend continuing olanzapine for acute psychotic event. If she does have Lewy body dementia, I generally use quetiapine and I can consider this when I re-evaluate her as an outpatient. I suggested repeat neuropsych testing as an outpatient. I plan to discuss my recommendations with the family and will also await the recommendations from Psychiatry. The patient should follow up with myself and Dr. Welch after discharge. Thank you for this consultation. EDWIN
--- NOTE | 2017-02-24 18:24 | NUR ---
Urinary pt continue to have urinary retention throughout morning, early afternoon. bladder scan revealed about 999ml. situation discussed with MD. instructed an in/out cath. pt assisted to BSC with about 650ml void of severely cloudy cameron urine. MD updated. will continue to monitor.
--- NOTE | 2017-02-24 18:28 | NUR ---
spiritual care: pt request conversational visit wiht pt and family. blessing
[2017-02-24] MEDS: cefTRIAXone Inj 2,000 MG in Dextrose 5% Minibag Plus 50 ML IV SCH (18:37)
[2017-02-24 20:05] VITALS: BP 128/62; PULSE 80; RESP 18; O2SAT 96
--- NOTE | 2017-02-24 20:22 | PROCED ---
[address] [address] EEG PATIENT: IRVIN ELIZALDE : 1945 MR#: [id number] ADMIT: 02/23/2017 JOB ID: [id number] REQUESTING PHYSICIAN: Dr. Burt. CLINICAL HISTORY: The patient is a 71-year-old female with spells of confusion, which have occurred in the context of illness. She, at one point, was diagnosed with frontal lobe seizures. However, video EEG monitoring at [facility] in 2013 failed to uncover an etiology. Extensive testing, including paraneoplastic antibodies and NMDA receptor is antibodies were all negative at the time. Family history of Lewy body dementia. Patient currently has a urinary tract infection. MEDICATIONS: 1. Levetiracetam. 2. Depakote. DESCRIPTION: While awake and with eyes closed, there are 6-Hz rhythmic and symmetric waveforms seen over the occipital head region which attenuate with eye opening. The patient enters sleep, at which time, the appropriate sleep architecture is noted in both hemispheres. There are no focal lateralizing or epileptiform abnormalities seen throughout the recording. Activation: Photic activation does not reveal any photic driving and no photoparoxysmal discharges. Hyperventilation was not performed. EKG rhythm strip shows regular rhythm. IMPRESSION: Abnormal electroencephalogram due to slowing. Slowing can be consistent with dementia, encephalopathy. No evidence of ongoing seizure activity or epileptiform abnormalities to suggest seizures. Clinical correlation advised. Dr. Burt was called with the results.
[2017-02-24] MEDS: levETIRAcetam 500 mg Tablet PO SCH (21:37)
[2017-02-25 00:46] VITALS: PULSE 93
[2017-02-25 01:15] VITALS: PULSE 70; RESP 20; O2SAT 96
--- NOTE | 2017-02-25 02:29 | NUR ---
Mentation, Sleep: Pt alert and oriented to self only tonight. Was able to answer the question 'Will a rock float in water' and 'Is one more than two' correctly though tonight; which she was not able to do the night before. Was spelling most words with conversation. Up to the [facility] with assist, needed to sit there about 20 minutes until able to void. Pt has not been up and down to the commode like last night. Pt able to sleep some tonight, fell asleep about 0045; about 2 hours thus far. Has a CPOX in place with 2L of oxygen. Home CPAP is here although pt was pulling on the CPAP cords and the unit fell on the floor; thus it was taken off and the NC placed on pt. Addendum: 02/25/17 at 0548 by LESLIE FANG RN Pt was able to sleep for 5 hours tonight. Upon waking, pt alert and oriented to self, month/year, and that she is in a hospital. Thought she was in [place], told her further, and she was able to state [facility].
[2017-02-25 05:49] VITALS: BP 131/84; PULSE 77; RESP 18; O2SAT 95
[2017-02-25 06:31] LABS: BASOPHILS % (AUTO) 0.4 % (0-3); EOSINOPHILS % (AUTO) 1.3 % (0-5); MONOCYTES % (AUTO) 13.4 % (4-12); Mean Corpuscular Hemoglobin 27.8 pg (27.0-35.0); Mean Corpuscular Volume 85.3 fL (81-100); NEUTROPHILS % (AUTO) 39.8 % (40-74); Platelet Count 276 bil/L (150-400)
[2017-02-25 06:59] LABS: Magnesium 1.8 mg/dL (1.6-2.6); Phosphorus 4.5 mg/dL (2.5-4.9)
[2017-02-25] MEDS: Vitamin B Complex/Vit C Tablet PO SCH (08:48)
[2017-02-25] MEDS: Pantoprazole 40 mg ER24 Tablet PO SCH ×2 (08:48→16:39)
--- NOTE | 2017-02-25 11:25 | PCM.PNMED ---
Subjective Date of Service Feb 25, 2017 Subjective Patient's mental status was remarkably better today Alert and oriented 3 Coherent, able to answer all the questions Denied headache, dizziness Recent was seen by Dr. Pfeiffer, psychiatrist Exam Vital Signs Vital Sign - Last Date Time Temp Pulse Resp B/P Pulse Ox O2 Delivery O2 Flow Rate FiO2 02/25/17 05:49 36.7 77 18 131/84 95 Room Air 02/25/17 01:15 2.00 Intake and Output 02/24/17 02/24/17 02/25/17 Cumulative From/Thru 15:00 23:00 07:00 02/23/17 12:20 - 02/25/17 06:10 Intake Total 533 ml 950 ml 1763 ml Output Total 600 ml 3900 ml 8195 ml Balance -67 ml -2950 ml -6432 ml Intake Oral 400 ml 950 ml 1630 ml IV Total 133 ml 133 ml Output Urine Total 600 ml 3900 ml 8195 ml # Bowel Movements 1 2 Exam NAD, comfortably laying down on the bed no JVD, MMM, no LAD RRR, nl s1, s2 no mrg CTAB, no w,c S,ND,NT,normoactive BS+ warm, no edema, pulses 2/2 IVs and Medications Medications Reviewed: Medications were reviewed in detail Lab and Diagnostics Result Diagram: 02/25/17 0530 02/25/17 0530 Microbiology Blood and urine cultures pending X-Rays, CTs and MRIs CT Head Interpretation IMPRESSION: 1. No acute intracranial hemorrhage. 2. Probable chronic small vessel ischemic changes with parenchymal volume loss. The need for better evaluation utilizing MRI may be determined clinically. Dictated by: Derik Menezes M.D. on 02/23/2017 at 12:54 12-lead ECG 12-lead ECG Sinus rhythm, rate 82 LBBB No acute changes Assessment & Plan Very pleasant 71yo woman with seizure history since 2015, recent DM2, cardiomyopathy s/p defibrillator placement presents with altered mental status and reported increased incidents of absence seizures and confusion. At baseline her daughter reported to the ED that she is alert and oriented and carries out all basic ADLs independently. She was diagnosed with a UTI on and is completing a course of Cephalexin. She sees Dr Walton and her case was discussed by Dr Walton and Dr Nieto our ER doctor. Dr Walton requested the patient be admitted and that an EEG be ordered. The daughter believes the patient did take her medicines on schedule. I did speak with Dr Walton after seeing the patient, her comments are below. Acute, active Acute encephalopathy, POA, initially it was thought to be known seizure disorder , however given her history that previously patient was monitored on continuous EEG unit, which also didn't show any seizures, repeat EEG 02/24 showed slowing but no focus. It was thought to be possibly psychiatric disease per . was consulted. ddx: metabolic with UTI, Lewy body dementia given strong FHx-mother, underlying psychiatric dz -today MS improved greatly, will continue neurocheck q4h, seizure precaution. -taper keppra 750mg qd for 2weeks and stop. will monitor any mood changes. -increaed olanzapine 2.5mg bid per . -PT to assess ambulation #Generalized anxiety disorder, Panic disorder without agoraphobia, Depression, probable dementia -Continue Olanzapine 2.5mg bid #UTI treatment with Cephalexin 500mg PO TID started on 02/20/17 -continued CFX 02/24-, would continue for now. chronic,stable #Diabetes Mellitus type 2, controlled with oral medications -Continue Metformin 500mg PO BID -Diabetic diet #Cardiomyopathy -Continue home medications: Carvedilol 25mg PO BID, Digoxin 0.125mg daily, Losartan 50mg PO BID, Furosemide 20mg PO BID, Eplerenone 25mg qam, Aspirin 325mg daily #Headache, POA, reported, but not confirmed by patient demeanor. Head CT without acute findings, no history of fall. Dr Walton suggests that in the absence of discomfort this complaint may also be psychogenic. -no treatment unless discomfort is clear or patient asks for pain relief. dispo: likely 1-2more days, diet: consistent carb Full Code Time spent 35min Junito Burt MD Feb 25, 2017 11:25
[2017-02-25 14:19] VITALS: BP 97/55; PULSE 68; RESP 20; O2SAT 94
--- NOTE | 2017-02-25 14:38 | NUR ---
Social Work: initial assessment- Readiness for Discharge: Data:See initial assessment. Pt is a 71 y/o female who was admitted on 02/23/17 for altered mental status, seizure disorder per H&P. Pt discussed at morning rounds and is likely to discharge tomorrowPt's insurance is [employer] and PCP is Ila Aly. EMR Reviewed. Pt's readmission score is 4-high risk. JUSTIN met with pt at bedside to discuss discharge planning, SW role explained. Pt is alert and oriented x3. Pt resides at [facility] on [facility]. Pt uses a walker, cane, and shower chair at baseline and does not drive. Pt has no HH or SNF history. Pt states she has completed DPOA/ advanced directive and dtr plans to provide hospital with a copy. Pt has no snf care or VA benefits. w contacted [facility] to inform them of pt's status and request bedside assessment and is awaiting call back. PT evaluated and recommends continued PT services provided through pt's assisted living facility. Pt's dtr to provide transport home at discharge. SW provided phone number and plan on white board in room. No further needs assessed at this time SW will continue to follow. Assessment:Pt who resides at home alone. Plan:Pt to likely discharge home tomorrow via POV. PT recommending services through [facility]. SW has contacted [facility] and is awaiting return call. SW will continue to follow. ISABELA Morris Addendum: 02/25/17 at 1446 by ALINE DOYLE Amended: Links added.
--- NOTE | 2017-02-25 16:30 | NUR ---
Social Work - Brief note SW received return call from [facility] regarding pt. SW stated it is possible to pt will discharge tomorrow and she confirmed that they will need to come out to evaluate her before she can return. They will plan to send someone out to do so tomorrow and SW agreed to follow up following morning rounds when plan for discharge is more clear. ISABELA Morris
[2017-02-25] MEDS: cefTRIAXone Inj 2,000 MG in Dextrose 5% Minibag Plus 50 ML IV SCH (16:40)
--- NOTE | 2017-02-25 18:31 | NUR ---
Mentation greatly improved today. alert to self, place and time. per daughter, patient is almost back to her normal self. Daughter reported that patient has made a couple of "odd comments". using FWW with ambulation. worked with PT today. using call light appropriately today. continue to monitor
--- NOTE | 2017-02-25 18:40 | NUR ---
report of charted A-fib on 02/[address]jandro noticed that there was a documentation of A-fib on 02/24/[address] Alejandro asked that this be investigated. Per telehealth director, patient has been in SR since placed on Telemetry at admit. chart review didn't show any other documented episodes of A-fib.
[2017-02-25] MEDS: levETIRAcetam 500 mg Tablet PO SCH (21:05)
[2017-02-25 22:06] VITALS: BP 93/60; PULSE 80; RESP 20; O2SAT 92
--- NOTE | 2017-02-25 22:16 | NUR ---
Blood pressure Pt's blood pressure is low at 93/60. She is asymptomatic. Her I/O is 2136/4700. She took all her cardiac medications today as well. Will monitor
--- NOTE | 2017-02-25 22:18 | NUR ---
Resp Pt found with CPAP off. Pt states,""I don't like it." and "I don't want it." Given 2LNC. Pt tolerates the cannula. Cont pulse ox in place. Will cont to monitor
[2017-02-26 05:33] VITALS: BP 114/70; PULSE 78; RESP 18; O2SAT 94
[2017-02-26 05:53] LABS: BASOPHILS % (AUTO) 0.3 % (0-3); EOSINOPHILS % (AUTO) 2.6 % (0-5); Mean Corpuscular Hemoglobin 27.6 pg (27.0-35.0); Mean Corpuscular Volume 85.5 fL (81-100); NEUTROPHILS % (AUTO) 44.6 % (40-74); Platelet Count 239 bil/L (150-400)
[2017-02-26 06:15] LABS: Magnesium 1.7 mg/dL (1.6-2.6)
--- NOTE | 2017-02-26 08:33 | PROG NOTE ---
[address] [address] PROGRESS NOTE PATIENT: IRVIN ELIZALDE : 1945 MR#: [id number] ADMIT: 02/23/2017 JOB ID: [id number] DATE: 02/25/2017 NEUROLOGY PROGRESS NOTE: REQUESTING PHYSICIAN: Junito Burt MD SUBJECTIVE: The patient is a 71-year-old female with history of spells of unclear etiology who has been through video EEG monitoring with no evidence of seizures found. She was admitted with a typical spell which has some psychotic features. Repeat EEG during this hospitalization did not show any epileptiform abnormalities, but did show some slowing which could be consistent with delirium. The patient was evaluated by Dr. Johnson in Psychiatry whose consultation is greatly appreciated. He felt that the patient was experiencing delirium and generalized anxiety brought on by multiple stressors that were clarified by the patient's daughter, Irvin, as being present. In retrospect Irvin had noted progression in the patient in terms of confusion and agitation in the days prior to the discover of her UTI and subsequent decompensation. Today the patient is clear, articulate, well groomed, holding her grandchild and able to provide a lucid history including names of her providers and dates of procedures. REVIEW OF SYSTEMS: Is as per the history of present illness. All other systems were reviewed and reported as negative. OBJECTIVE: Vital signs: Normal sinus rhythm on telemetry. Blood pressure is 93/60, pulse 80, afebrile. Pulse oximetry 92% on room air. Head: Normocephalic, atraumatic. No evidence of carotid bruits. Lungs: Clear to auscultation. Cardiac: Regular rate and rhythm. Minimal edema in the lower extremities. NEUROLOGIC EXAMINATION: The patient is alert and oriented x3, with language and speech intact and fluent. No disorganized speech. Pleasant, cooperative and interactive with the examiner. Mood euthymic. Cranial nerves: Pupils equally reactive to light and accommodation. No facial asymmetry. Cranial nerves appear to be intact otherwise. Motor strength: Intact upper and lower extremities. Deep tendon reflexes: Trace throughout upper and lower extremities. Sensation: Intact to touch all four extremities. Coordination: Intact by observation. Gait: Intact by report. INPATIENT MEDICATIONS: 1. Olanzapine 2.5 mg b.i.d. 2. Ceftriaxone levetiracetam reduced to 750 mg daily. 3. Divalproex/valproic acid 750 mg two times daily. 4. Plus others noted. LABORATORIES: From February 13, 2017: Valproic acid 53, levetiracetam 11. ASSESSMENT AND RECOMMENDATION: The patient is a 71-year-old female with infrequent spells of psychosis previously thought possibly to be seizures on two antiepileptic medications with breakthrough events. The consultation from psychiatry is greatly appreciated and serves to clarify the patient's symptoms and spells as being anxiety with delirium. This fits the context of her previous spells. She is advised to continue Zyprexa and follow up with her outpatient psychiatrist, Dr. Cordelia Welch. The patient is tolerating the decrease in levetiracetam. After discharge, I would continue levetiracetam at 750 mg for the next week and then stop it. Depakote/valproic acid should be continued at 1500 mg daily since it may also serve as a mood stabilizer. I will request the records from [place] to confirm no epileptic activity. I would defer then to Dr. Cordelia Welch for whether it is necessary to continue Depakote or to consider a trial of decreasing this medication which may be contributing to the patient's delirium. I plan to request the outpatient neuropsychological evaluation with the reported [place] evaluation showing no dementia. Given her family history of Lewy body dementia, I believe she may be at risk. I have spent over half of this 45 minute consultation discussing my recommendations and concerns as well as next steps with the patient's family, her daughter, Dione and son-in-law, Tonio. I will sign off for now. The patient should followup in the Neurology Clinic in the next two months. I recommend that she call the office for an appointment. I have requested that my office schedule her in a cancellation. They are further instructed to call if there are any issues. Thank you this consultation. Will sign off for now. EDWIN
[2017-02-26] MEDS: Vitamin B Complex/Vit C Tablet PO SCH (09:35)
[2017-02-26] MEDS: Pantoprazole 40 mg ER24 Tablet PO SCH ×2 (09:36→17:01)
--- NOTE | 2017-02-26 11:06 | NUR ---
Social Work: Brief Note FRENCH BINDING FOLDER left a message for [facility] with the board of education secretary for Disha Lozoya to call FRENCH BINDING FOLDER back GELA to complete assessment today as pt is medically stable to d/c back to [facility] today. FRENCH BINDING FOLDER will continue to follow. ISABELA Stack
[2017-02-26] MEDS ORDERED: OLAN2.5T20 PO (11:41)
[2017-02-26] MEDS ORDERED: FUR20 PO (11:41)
[2017-02-26] MEDS ORDERED: LEVE500T3 PO (11:41)
[2017-02-26] MEDS ORDERED: VALP250C30 PO (11:41)
--- NOTE | 2017-02-26 11:48 | PCM.DIMED ---
Discharge Instructions Date of Service Feb 26, 2017 Dates of Hospitalization Feb 23, 2017 at 18:08 Discharge Diagnosis Discharge Diagnosis Encephalopathy, multifactorial, urinary tract infection, early Lewy body dementia, mood disorder, psychiatric disease. Medication Instructions Please note that your regimen was changed take Keppra 750mg instead of 1,000mg once at bed time for 2weeks then stop take Zyprexa 2.5mg twice a day instead of once a day take Depakote 750mg twice a day instead of 500mg take Lasix 20mg once a day instead of twice a day Patient Instructions You were hospitalized with possible multiple seizure episodes, witnessed by your family. You were closely monitored in the hospital, got treatment for Urinary tract infection. Your mentation significantly improved with medical management. EEG didn't show any signs of seizure. Please follow up with your primary Psychiatrist and primary doctor in 1week. Please note that you need to follow up with in the clinic Follow-up Provider: Ila Aly PA-C Follow-up with PCP in: 1 week Junito Burt MD Feb 26, 2017 11:48
--- NOTE | 2017-02-26 12:23 | NUR ---
Social Work: Continued d/c planning Data: Pt is on day 3 of hospitalization. EMR reviewed. MANAGER BUSINESS PLANNING spoke with Disha Lozoya [phone], who states their RN who was scheduled to assess pt today is on emergency leave and they cannot assess her until tomorrow morning. MANAGER BUSINESS PLANNING inquired about other facilities who could assess connected with [facility], she states they do not have this available. MANAGER BUSINESS PLANNING updated RN. [facility] [place] will be in to assess pt between 9-9:30am on 02/27/17. MANAGER BUSINESS PLANNING will continue to follow. Plan: [facility] [place] will be in to assess pt between 9-9:30am on 02/27/17. MANAGER BUSINESS PLANNING will continue to follow. ISABELA Stack
--- NOTE | 2017-02-26 12:28 | NUR ---
Faxed clinicals and discharge to [facility] @ [place] per ENVELOPE MACHINE ADJUSTER [phone]
[2017-02-26 13:36] VITALS: BP 111/70; PULSE 85; RESP 18
[2017-02-26] MEDS: cefTRIAXone Inj 2,000 MG in Dextrose 5% Minibag Plus 50 ML IV SCH (17:01)
--- NOTE | 2017-02-26 21:11 | PCM.PNMED ---
Subjective Date of Service Feb 26, 2017 Subjective no overnight event, pt remained AAOx3, no episode of seizure Exam Vital Signs Vital Sign - Last Date Time Temp Pulse Resp B/P Pulse Ox O2 Delivery O2 Flow Rate FiO2 02/26/17 13:36 36.6 85 18 111/70 Room Air 02/26/17 05:33 94 02/25/17 01:15 2.00 Intake and Output 02/25/17 02/25/17 02/26/17 Cumulative From/Thru 15:00 23:00 07:00 02/23/17 12:20 - 02/26/17 06:55 Intake Total 1186 ml 200 ml 3149 ml Output Total 800 ml 800 ml 9795 ml Balance 386 ml -600 ml -6646 ml Intake Oral 1136 ml 200 ml 2966 ml IV Total 50 ml 183 ml Output Urine Total 800 ml 800 ml 9795 ml # Bowel Movements 1 0 3 Exam NAD, comfortably laying down on the bed no JVD, MMM, no LAD RRR, nl s1, s2 no mrg CTAB, no w,c S,ND,NT,normoactive BS+ warm, no edema, pulses 2/2 IVs and Medications Medications Reviewed: Medications were reviewed in detail Lab and Diagnostics Result Diagram: 02/26/17 0500 02/26/17 0500 Microbiology Blood and urine cultures pending X-Rays, CTs and MRIs CT Head Interpretation IMPRESSION: 1. No acute intracranial hemorrhage. 2. Probable chronic small vessel ischemic changes with parenchymal volume loss. The need for better evaluation utilizing MRI may be determined clinically. Dictated by: Derik Menezes M.D. on 02/23/2017 at 12:54 12-lead ECG 12-lead ECG Sinus rhythm, rate 82 LBBB No acute changes Assessment & Plan Very pleasant 71yo woman with seizure history since 2014, recent DM2, cardiomyopathy s/p defibrillator placement presents with altered mental status and reported increased incidents of absence seizures and confusion. At baseline her daughter reported to the ED that she is alert and oriented and carries out all basic ADLs independently. She was diagnosed with a UTI on and is completing a course of Cephalexin. She sees Dr Walton and her case was discussed by Dr Walton and Dr Nieto our ER doctor. Dr Walton requested the patient be admitted and that an EEG be ordered. The daughter believes the patient did take her medicines on schedule. I did speak with Dr Walton after seeing the patient, her comments are below. Acute, active Acute encephalopathy, POA, initially it was thought to be known seizure disorder , however given her history that previously patient was monitored on continuous EEG unit, which also didn't show any seizures, repeat EEG 02/24 showed slowing but no focus. It was thought to be possibly psychiatric disease per . was consulted. ddx: metabolic with UTI, Lewy body dementia given strong FHx-mother, underlying psychiatric dz -MS remained unchanged, AAOX3, -taper keppra 750mg qd for 2weeks and stop. will monitor any mood changes. -increaed olanzapine 2.5mg bid per . -PT to assess ambulation #Generalized anxiety disorder, Panic disorder without agoraphobia, Depression, probable dementia -Continue Olanzapine 2.5mg bid #UTI treatment with Cephalexin 500mg PO TID started on 02/20/17 -continued CFX 02/24-, would continue for now. chronic,stable #Diabetes Mellitus type 2, controlled with oral medications -Continue Metformin 500mg PO BID -Diabetic diet #Cardiomyopathy -Continue home medications: Carvedilol 25mg PO BID, Digoxin 0.125mg daily, Losartan 50mg PO BID, Furosemide 20mg PO BID, Eplerenone 25mg qam, Aspirin 325mg daily #Headache, POA, reported, but not confirmed by patient demeanor. Head CT without acute findings, no history of fall. Dr Walton suggests that in the absence of discomfort this complaint may also be psychogenic. -no treatment unless discomfort is clear or patient asks for pain relief. dispo: delayed due to optimal dispo, assisted living. diet: consistent carb Full Code Time spent 35min Junito Burt MD Feb 26, 2017 21:11
[2017-02-26] MEDS: levETIRAcetam 500 mg Tablet PO SCH (21:56)
[2017-02-26 22:23] VITALS: BP 123/69; PULSE 85; RESP 18; O2SAT 92
--- NOTE | 2017-02-26 22:53 | NUR ---
Activity Received report at 2009, pt remained in bed, pleasant and cooperative with cares. Some nausea, pt asked for sprite for stomach. Pt alert and oriented, forgetful of short term events. Left room with call light at bedside.
[2017-02-27 01:40] VITALS: BP 120/79; PULSE 76; RESP 16; O2SAT 96
--- NOTE | 2017-02-27 01:55 | NUR ---
Arrival to Unit [place] [facility] [place] 0120 with CERTIFIED WELLNESS PROGRAM MANAGER and RN from [facility]. Received report from Brenda Boles RN at bedside. Oriented pt to room, call light, etc. and set up CPAP with 1.5L. VSS, O2 sat low 90's RA - 96% with 1.5L. No complaints of pain or nausea at this time. Pt resting comfortably in room. Hourly rounding.
[2017-02-27 06:26] VITALS: BP 123/76; PULSE 79; RESP 16; O2SAT 93
[2017-02-27] MEDS ORDERED: CIPR-231 PO (07:15)
[2017-02-27 08:15] VITALS: BP 141/81; PULSE 81; RESP 18; O2SAT 94
[2017-02-27] MEDS: Pantoprazole 40 mg ER24 Tablet PO SCH (08:21)
[2017-02-27] MEDS: Vitamin B Complex/Vit C Tablet PO SCH (09:50)
--- NOTE | 2017-02-27 12:06 | NUR ---
Social work Note - Discharge SURGICAL TECHNOLOGY INSTRUCTOR met with pt - spoke with Pt's Daughter on the phone. Pt was evaluated by Disha from [facility] on who states that she is able to return to her same level of care. Discharge information given to Dihsa and SURGICAL TECHNOLOGY INSTRUCTOR faxed med list. Pt's daughter is coming to the hospital to transport pt back to her Assisted living. No other needs identified. Plan: D/C to [facility] on . Family to transport. CURTIS Goodrich
[2017-02-27 12:19] VITALS: PULSE 61
--- NOTE | 2017-02-27 14:30 | NUR ---
spiritual care: pt request visit attempt. pt discharged.
--- NOTE | 2017-02-27 16:36 | NUR ---
Discharge Patient discharged home with Daughter via private vehicle. Discharge instructions discussed with patient. Hard copies of prescriptions given to patient. All personal belongings were sent with patient. Patient wheeled to the vehicle by [facility] staff. Discharge time about 1300.
--- NOTE | 2017-02-28 15:14 | PCM.DC.MED ---
Discharge Summary Date of Service Feb 27, 2017 Dates of Hospitalization Date of Hospital Admission Feb 23, 2017 at 18:08 Date of Discharge: Feb 27, 2017 Providers: Admitting Physician: Kassidy Pinto DO Primary Care Physician: Ila Aly PA-C Attending Physician: Willem Robles Diagnosis at Time of Discharge Diagnosis at Time of Discharge Acute problems Encephalopathy, multifactorial, urinary tract infection, early Lewy body dementia, mood disorder, psychiatric disease. UTI chronic problems #Diabetes Mellitus type 2 #Cardiomyopathy Consultations Neurology, Procedures XRay, CTs & MRIs CT Head Interpretation IMPRESSION: 1. No acute intracranial hemorrhage. 2. Probable chronic small vessel ischemic changes with parenchymal volume loss. The need for better evaluation utilizing MRI may be determined clinically. Dictated by: Derik Menezes M.D. on 02/23/2017 at 12:54 ECG 12 Lead 12-lead ECG Sinus rhythm, rate 82 LBBB No acute changes Brief History HPI obtained by Dr. Pinto on 02/23 Patient unable to provide reliable history. From the ER documentation earlier today with the patient's daughter present: "The patient is a 71 year old female with history of seizure disorder (started in 2014, on Keppra and valproic acid), cardiomyopathy, diabetes mellitus on Metformin (recently started), who presents to the emergency department with family. The patient lives in assisted living. Typically she is alert and oriented, able to dress herself, walk, feed herself, and complete basic daily activities. Over the last week she has shown increased confusion, increased seizure activity, and unsteady gait. The nurse at the assisted living facility reported that the patient has been having back to back absence seizures. Her daughter feels that the frequency of seizures are higher compared to previous seizure episodes. She is now unable to dress or feed herself. Her daughter states she is also having a hard time articulating and is unable to answer questions or follow directions. Her daughter feels that the patient has episodes of confusion and then will return to baseline, then have another episode of confusion. She was seen on Thursday and Thursday at [facility]. On Thursday she was diagnosed with a UTI and started on Keflex. Her daughter does not believe she has missed any of her seizure medication doses. There has been no recent changes to her medications. Today when they got her from home she seemed more shaky and weak compared to normal. She has not fallen or hit her head recently. She has not had a fever, cough or vomiting. Hospital Course Very pleasant 71yo woman with seizure history since 2015, recent DM2, cardiomyopathy s/p defibrillator placement presents with altered mental status and reported increased incidents of absence seizures and confusion. At baseline her daughter reported to the ED that she is alert and oriented and carries out all basic ADLs independently. She was diagnosed with a UTI on and is completing a course of Cephalexin. She sees Dr Walton and her case was discussed by Dr Walton and Dr Nieto our ER doctor. Dr Walton requested the patient be admitted and that an EEG be ordered. The daughter believes the patient did take her medicines on schedule. I did speak with Dr Walton after seeing the patient, her comments are below. Acute problems Acute encephalopathy, POA, initially it was thought to be from known seizure disorder, however given her history that previously patient was monitored on continuous EEG unit, which also didn't show any seizures, repeat EEG 02/24 showed slowing but no focus. It's unclear still whay caused her changes of mental status, seizure-like episode: possibly metabolic with UTI, Lewy body dementia given strong FHx-mother, underlying psychiatric dz. few days prior to d /c, patient remained alert and oriented, ambulating with normal gait. Given low suspicion for seizure d/o, keppra was decreased to 750mg per , will continue for 2more weeks then stop. Valproic acid level was lower normal, therefore, dose was increased to 750mg(it was used for mood disorder, not seizure). #multiple psyhiatric disease, patient was seen by , noticed pt has Generalized anxiety disorder, Panic disorder without agoraphobia, Depression, probable dementia.home Olanzapine was increased to 2.5mg bid from daily. patient tolerated well. #UTI treatment with Cephalexin 500mg PO TID started on 02/20/17, pt already received 3days prior to admission, repeat UA/UCX was all negative. However, pt had burning sensation, deemed for tx. started on Rocephin and discharged with Ciprofloxacin for 10days course. chronic problems #Diabetes Mellitus type 2, controlled with oral medications #Cardiomyopathy, unclear baseline LV function, remained euvolemic, continue home meds:Carvedilol 25mg PO BID, Digoxin 0.125mg daily, Losartan 50mg PO BID Eplerenone 25mg qam, Aspirin 325mg daily. lasix was started on home dose 20po bid, but pt maintained negative balance, therefore, dose was decreased to daily upon d/c. Exam Vital Signs (Last) Date Time Temp Pulse Resp B/P Pulse Ox O2 Delivery O2 Flow Rate FiO2 02/27/17 12:19 61 02/27/17 08:15 36.7 18 141/81 94 Room Air 02/27/17 01:40 1.50 Exam NAD, comfortably laying down on the bed no JVD, MMM, no LAD RRR, nl s1, s2 no mrg CTAB, no w,c S,ND,NT,normoactive BS+ warm, no edema, pulses 2/2 neuro: CN2-12 intact, AAOx3 Test 02/23/17 12:30 02/23/17 13:35 02/23/17 16:17 02/25/17 05:30 Urine Color Straw (YELLOW) Urine Appearance Hazy (CLEAR,HAZY) Urine pH 7.0 (5.0-8.0) Urine Specific Parrish 1.010 (1.003-1.035) Urine Protein Negativemg/dL (NEG,TRACE) Urine Glucose (UA) Negativemg/dL (NEGATIVE) Urine Ketones Negativemg/dL (NEGATIVE) Urine Occult Blood Negative (NEGATIVE) Urine Nitrite Negative (NEGATIVE) Urine Bilirubin Negative (NEGATIVE) Urine Urobilinogen Normalmg/dL (NORMAL) Urine Leukocyte Esterase Trace (NEGATIVE) Urine RBC 0-2/hpf (0-2) Urine WBC 0-5/hpf (0-5) Urine Epithelial Cells Occasional/hpf (NONE-MOD) Urine Crystals None seen (NONE SEEN) Urine Bacteria Moderate/hpf (NONE-FEW) Urine Hyaline Casts None/lpf (NONE) Urine Granular Casts None seen (NONE SEEN) Urine Waxy Casts None seen (NONE SEEN) Urine Red Blood Cell Casts None seen (NONE SEEN) Urine White Blood Cell Casts None seen (NONE SEEN) Urine Mucus None seen (None Seen) Urine Trichomonas None seen (NONE SEEN) Urine Yeast None (NONE SEEN) Urinalysis Comment None Urine Culture Reflexed Indicated Prothrombin Time 10.4sec (8.1-12.5) Prothromb Time International Ratio 0.97ratio Activated Partial Thromboplast Time 33.0sec (22.8-33.0) Troponin T < 0.010ug/L (0.0-0.011) Procalcitonin 0.04ng/mL (0.00-0.08) Lactic Acid Level 1.7mmol/L (0.4-2.0) Valproic Acid (Depakene) Level 53ug/mL (50-125) Levetiracetam (Keppra) Level 11.0ug/mL (10.0-40.0) Phosphorus Level 4.5mg/dL (2.5-4.9) Test 02/26/17 05:00 White Blood Count 9.2th/mm3 (3.8-10.1) Red Blood Count 4.28mil/mm3 (3.90-5.20) Hemoglobin 11.8g/dL (12.0-15.6) Hematocrit 36.6% (35.0-46.0) Mean Corpuscular Volume 85.5fL (81-100) Mean Corpuscular Hemoglobin 27.6pg (27.0-35.0) Mean Corpuscular Hemoglobin Concent 32.2% (32.0-37.0) Red Cell Distribution Width 14.2% (12.3-15.4) Platelet Count 239bil/L (150-400) Neutrophils (%) (Auto) 44.6% (40-74) Lymphocytes (%) (Auto) 40.2% (14-46) Monocytes (%) (Auto) 12.0% (4-12) Eosinophils (%) (Auto) 2.6% (0-5) Basophils (%) (Auto) 0.3% (0-3) Sodium Level 136mEq/L (134-144) Potassium Level 4.4mEq/L (3.5-5.2) Chloride Level 95mEq/L (97-108) Carbon Dioxide Level 24mmol/L (18-29) Blood Urea Nitrogen 11mg/dL (8-27) Creatinine 0.58mg/dL (0.57-1.00) Estimat Glomerular Filtration Rate 147mL/min (>59) Glucose Level 110mg/dL (60-99) Calcium Level 9.2mg/dL (8.5-10.1) Magnesium Level 1.7mg/dL (1.6-2.6) Total Bilirubin 0.3mg/dL (0.0-1.2) Aspartate Amino Transf (AST/SGOT) 13U/L (0-50) Alanine Aminotransferase (ALT/SGPT) 10U/L (0-32) Alkaline Phosphatase 38U/L (25-165) Total Protein 6.2g/dL (6.4-8.4) Albumin 3.6g/dL (3.4-5.0) Microbiology Results Blood and urine cultures pending Discharge Medications Discharge Medications Aspirin (Aspirin) 325 Mg Tablet 325 MG PO DAILYWD (Reported) Carvedilol (Carvedilol) 25 Mg Tablet 25 MG PO BIDWM (Reported) Cholecalciferol (Vitamin D3) (Vitamin D3) 1,000 Unit Tab.chew 1,000 UNIT PO BID (Reported) Ciprofloxacin (Cipro) 500 Mg Tablet 500 MG PO BID Prescribed by: JUNITO DECKER MD Digoxin (Digoxin) 125 Mcg Tablet 125 MCG PO DAILY (Reported) Eplerenone (Eplerenone) 25 Mg Tablet 25 MG PO QAM (Reported) Estradiol (Estrace) 42.5 Gm Cream.appl 1 G VG TU/ASHU/SAT (Reported) Fenofibrate (Lofibra) 54 Mg Tablet 54 MG PO DAILYWD (Reported) Furosemide (Furosemide) 20 Mg Tab 20 MG PO DAILY 0800 AND 1200 Prescribed by: JUNITO DECKER MD Levetiracetam (Levetiracetam) 500 Mg Tablet 750 MG PO HS Prescribed by: JUNITO DECKER MD Losartan Potassium (Losartan Potassium) 50 Mg Tablet 50 MG PO BIDWM (Reported) Metformin (Metformin) 500 Mg Tablet 500 MG PO BIDWM (Reported) Multivitamin (Multi Vitamin Daily) 1 Each Tablet 1 EACH PO BIDWM (Reported) Olanzapine (Olanzapine) 2.5 Mg Tablet 2.5 MG PO BID Prescribed by: JUNITO DECKER MD [place]-3/Dha/Epa/Fish Oil (Fish Oil 1,000 mg Softgel) 1 Each Capsule 1 EACH PO QAM (Reported) Omeprazole (Omeprazole) 20 Mg Capsule.dr 20 MG PO BIDAC (Reported) Valproic Acid (Depakene) 250 Mg Capsule 750 MG PO BID Prescribed by: JUNITO DECKER MD Vitamin B Comp W-C/FA/Zinc (Viv B Strong with C & Zinc Tb) 1 Each Tablet 1 EACH PO QAM (Reported) As needed Acetaminophen (Acetaminophen) 325 Mg Tablet 650 MG PO Q4H PRN PRN For Pain ( Reported) Bisacodyl (Dulcolax Rectal) 10 Mg Supp.rect 10 MG RC DAILY PRN PRN For Constipation (Reported) NO RESULTS FROM MILK OF MAGNESIUM Bismuth Subsalicylate (Digestive Relief) 262 Mg/15 Ml Oral.susp 262 MG PO Q4H PRN PRN For Nausea/Vomiting (Reported) Loperamide (Loperamide) 2 Mg Tablet 2 MG PO QID PRN PRN For Diarrhea or Loose Stool (Reported) Magnesium Hydroxide (Milk of Magnesia) 400 Mg/5 Ml Oral.susp 30 ML PO DAILY PRN PRN For Constipation (Reported) Additional med instructions Please note that your regimen was changed take Keppra 750mg instead of 1,000mg once at bed time for 2weeks then stop take Zyprexa 2.5mg twice a day instead of once a day take Depakote 750mg twice a day instead of 500mg take Lasix 20mg once a day instead of twice a day Followup Plan Disposition: Assisted Living facility Patient Instructions You were hospitalized with possible multiple seizure episodes, witnessed by your family. You were closely monitored in the hospital, got treatment for Urinary tract infection. Your mentation significantly improved with medical management. EEG didn't show any signs of seizure. Please follow up with your primary Psychiatrist and primary doctor in 1week. Please note that you need to follow up with in the clinic Follow-up Provider: Ila Aly PA-C Follow-up with PCP in: 1 week Time spent 65min Junito Decker MD Feb 27, 2017 15:40
== END 2017-02-27 13:45 | disposition home or self-care (01) | DRG 689 ==
LOC: SED 12:17 → MPC 18:08 → OBSVTOIN 18:08 → MOC 02-27 01:15
PROVIDERS: ADMIT Internal Medicine; ATTEND Internal Medicine
PROC: 4A00X4Z Measurement of Central Nervous Electrical Activity, External Approach (ICD-10-PCS; principal; 2017-02-24)
DX: N39.0 Urinary tract infection, site not specified (principal); G93.40 Encephalopathy, unspecified; I42.9 Cardiomyopathy, unspecified; G40.909 Epilepsy, unspecified, not intractable, without status epilepticus; E11.9 Type 2 diabetes mellitus without complications; R41.0 Disorientation, unspecified; F41.0 Panic disorder [episodic paroxysmal anxiety]; F32.9 Major depressive disorder, single episode, unspecified; F41.1 Generalized anxiety disorder; F39 Unspecified mood [affective] disorder; Z79.84 Long term (current) use of oral hypoglycemic drugs; Z79.82 Long term (current) use of aspirin